=== PATIENT | female | born 1945 | race Caucasian/White ===

== ENCOUNTER 2022-03-11 01:21 | Observation (INO) | payer MEDICARE ==
[2022-03-11] MEDS ORDERED: LORazepam 2 MG/ML INJ IV STA (02:04)
[2022-03-11] MEDS ORDERED: NITROGLYCERIN OINT 1 INCH/GM PACKET TOPICAL STA (02:05)
--- NOTE | 2022-03-11 02:08 | ED ---
Chest Pain HPI - General Chief Complaint: Chest Pain Stated Complaint: Chest Pain/Back Pain Time Seen by Provider: 03/11/22 01:43 Source: patient Mode of arrival: ambulatory - History of Present Illness Initial Comments: 's patient is a 76-year-old woman who presents to be evaluated for chest pain and palpitations. The patient states that the symptoms had started up tonight after she had taken her insulin and was trying to go to bed. When the symptoms did not resolve she presents here for evaluation. The patient states she had earlier in the week seen her physician who had done an EKG and was concerned she may have had an HI previously and set her up with cardiology. Patient was also prescribed nitroglycerin to use should she develop episodes. She took one of those and states that her breathing did feel a little better. MD Complaint: chest pain -: hour(s) Onset: during rest Pain Location: substernal Pain Radiation: none Severity: mild Quality: tightness Consistency: constant Improves With: nothing Worsens With: nothing Anginal Symptoms: dyspnea Treatments Prior to Arrival: nitroglycerin - Related Data Home Medications Medication Instructions Recorded Confirmed Insulin Aspart Protam & Aspart 16 unit SQ AC-SUPPER 03/02/16 03/11/22 [NovoLOG MIX 70-30 Flexpen] Insulin Aspart Protam & Aspart 20 unit SQ AC-BRKFST 03/02/16 03/11/22 [NovoLOG MIX 70-30 Flexpen] Escitalopram [Lexapro] 10 mg PO DAILY 03/11/22 03/11/22 Losartan-Hctz 50-12.5 mg [Hyzaar 1 tab PO DAILY 03/11/22 03/11/22 50-12.5] Nitroglycerin Sl Tabs [Nitrostat] 0.4 mg SUBLINGUAL Q5M PRN 03/11/22 03/11/22 Omeprazole 20 mg PO DAILY 03/11/22 03/11/22 Venlafaxine HCl [Effexor XR] 37.5 mg PO DAILY 03/11/22 03/11/22 Previous Rx's Medication Instructions Recorded Aspirin 81 mg PO DAILY 03/12/22 Allergies Allergy/AdvReac Type Severity Reaction Status Date / Time atropine sulfate Allergy Rapid Verified 03/11/22 12:10 [From Lomotil] Heart Rate codeine Allergy Vomiting Verified 03/11/22 12:10 diphenoxylate HCl Allergy Rapid Verified 03/11/22 12:10 [From Lomotil] Heart Rate simvastatin [From Zocor] Allergy Abdominal Verified 03/11/22 12:10 Pain flagyl Allergy Rapid Uncoded 03/02/16 09:47 Heart Rate narcotics Allergy Vomiting Uncoded 03/02/16 09:43 Oatmeal Allergy Rash/Hives Uncoded 03/11/22 23:47 Review of Systems ROS Statement: Those systems with pertinent positive or pertinent negative responses have been documented in the HPI. ROS Other: All systems not noted in ROS Statement are negative. Constitutional: Denies: fever, chills Respiratory: Denies: cough, dyspnea Cardiovascular: Reports: chest pain, palpitations. Denies: orthopnea, edema, syncope Gastrointestinal: Denies: abdominal pain, nausea, vomiting Genitourinary: Denies: dysuria, hematuria Musculoskeletal: Denies: back pain Skin: Denies: rash Neurological: Denies: headache, weakness, numbness Psychiatric: Reports: anxiety EKG Findings - EKG Results: EKG: interpreted by RE, sinus rhythm (Rate 83 bpm.) - Blocks, [place], Hypertrophy, ST Abn: Chamber hypertrophy or enlargement: left ventricular hypertrophy or enlargement (LVE) - HI, Pacemaker, Normal: Myocardial infarction: septal HI (old age or indeterminate) Past Medical History Past Medical History: Diabetes Mellitus, GERD/Reflux, Hyperlipidemia Additional Past Medical History / Comment(s): varicose vein, diarrhea/constipation, IBS, arthritis, frequent UTI's. recent "NORO virus". History of Any Multi-Drug Resistant Organisms: None Reported Past Surgical History: Hysterectomy, Orthopedic Surgery, Tonsillectomy, Tubal Ligation Additional Past Surgical History / Comment(s): Fx rt elbow surgery, left wrist surgery, Past Anesthesia/Blood Transfusion Reactions: Postoperative Nausea & Vomiting (PONV) Additional Past Anesthesia/Blood Transfusion Reaction / Comment(s): severe PONV Past Psychological History: Anxiety Smoking Status: Never smoker Past Alcohol Use History: None Reported Past Drug Use History: None Reported - Past Family History Father Family Medical History: Cancer Mother Family Medical History: Cancer General Exam General appearance: alert, in no apparent distress Head exam: Present: atraumatic, normocephalic Eye exam: Present: normal appearance. Absent: scleral icterus, conjunctival injection ENT exam: Present: normal oropharynx Neck exam: Present: normal inspection, full ROM Respiratory exam: Present: normal lung sounds bilaterally. Absent: respiratory distress, wheezes, rales, rhonchi, stridor Cardiovascular Exam: Present: regular rate, normal rhythm, normal heart sounds. Absent: systolic murmur, diastolic murmur, rubs, gallop GI/Abdominal exam: Present: soft. Absent: distended, tenderness, guarding, rebound, rigid, mass Extremities exam: Present: normal inspection, normal capillary refill. Absent: pedal edema, calf tenderness Back exam: Present: normal inspection. Absent: CVA tenderness (R), CVA tenderness (L) Neurological exam: Present: alert Skin exam: Present: warm, dry, intact, normal color. Absent: rash Course Vital Signs 03/11/22 03/11/22 03/11/22 01:28 02:32 04:00 Temperature 98 F Pulse Rate 87 68 74 Respiratory 19 16 18 Rate Blood Pressure 197/93 156/80 140/70 O2 Sat by Pulse 98 95 95 Oximetry 03/11/22 05:15 Temperature Pulse Rate 73 Respiratory 18 Rate Blood Pressure 148/71 O2 Sat by Pulse 94 L Oximetry Disposition Clinical Impression: Chest pain Disposition: ADMITTED IP TO THIS HOSP Condition: Good Is patient prescribed a controlled substance at d/c from ED?: No
[2022-03-11 02:21] LABS: Basophils # (A) 0.1 k/uL (0-0.2); Basophils % (A) 2 %; Eosinophils # (A) 0.1 k/uL (0-0.7); Eosinophils % (A) 2 %; HCT 43.2 % (34.0-46.0); HGB 13.8 gm/dL (11.4-16.0); Lymphocytes # (A) 2.4 k/uL (1.0-4.8); Lymphocytes % (A) 40 %; MCH 30.2 pg (25.0-35.0); MCHC 31.8 g/dL (31.0-37.0); MCV 95.1 fL (80.0-100.0); Mean Platelet Volume 7.5; Monocytes # (A) 0.4 k/uL (0-1.0); Monocytes % (A) 7 %; Neutrophils # (A) 2.8 k/uL (1.3-7.7); Neutrophils % (A) 47 %; Platelet Count 247 k/uL (150-450); RBC 4.55 m/uL (3.80-5.40); RDW 12.5 % (11.5-15.5)
[2022-03-11 02:30] LABS: ALT 14 U/L (4-34); AST 21 U/L (14-36); African American GFR (CKD) >90 (>60 ml/min/1.73 sqM); Albumin 4.2 g/dL (3.5-5.0); Alkaline Phosphatase 100 U/L (38-126); Anion Gap 8 mmol/L; Blood Urea Nitrogen 22 mg/dL (7-17); Carbon Dioxide 28 mmol/L (22-30); Chloride 101 mmol/L (98-107); Glucose 157 mg/dL (74-99); Magnesium 1.9 mg/dL (1.6-2.3); Non-African American GFR(CKD) 89 (>60 ml/min/1.73 sqM); Potassium 3.6 mmol/L (3.5-5.1); Sodium 137 mmol/L (137-145); Total Bilirubin 0.5 mg/dL (0.2-1.3); Total Protein 6.9 g/dL (6.3-8.2)
--- NOTE | 2022-03-11 03:03 | XR ---
EXAMINATION TYPE: XR chest 1V portable DATE OF EXAM: 03/11/2022 COMPARISON: NONE HISTORY: Chest pain TECHNIQUE: Single view FINDINGS: Heart is normal. Lungs are clear of infiltrate. Thoracic aorta is atheromatous. There are c hest leads. IMPRESSION: No active cardiopulmonary disease.
[2022-03-11 03:09] LABS: INR 0.9 (<1.2); Prothrombin Time 10.2 sec (9.0-12.0)
[2022-03-11] MEDS ORDERED: NITROGLYCERIN SL TABS 0.4 MG TAB SUBLINGUAL PRN (04:16)
[2022-03-11] MEDS ORDERED: OMEPRAZOLE 10 MG PO PRN (04:18)
[2022-03-11 07:28] LABS: Glucose,Whole Blood 191 mg/dL (75-99)
[2022-03-11] MEDS: PANTOPRAZOLE 40 MG TABLET PO SCH (08:41)
[2022-03-11] MEDS ORDERED: ALPRAZolam 0.5 MG TAB PO PRN (09:00)
[2022-03-11] MEDS ORDERED: AMINOPHYLLINE 500 MG/20 ML VIAL IV PRN (11:38)
[2022-03-11] MEDS ORDERED: CAFFEINE CITRATE 60 MG/3 ML VIAL IV PRN (11:38)
--- NOTE | 2022-03-11 11:38 | P.CRDCN ---
History of Present Illness History of present illness: HISTORY OF PRESENTING ILLNESS Patient is a pleasant 76-year-old female with history of anxiety, hiatal hernia, GERD, diabetes mellitus type 2 on insulin, hypertension on some form of combina tion diuretic and blood pressure medication however unsure what who presents secondary to chest pain. Patient states over the last month she has been having atypical sharp chest pain which normally last for a few seconds and then goes away. This can happen every couple days. She had a longer episode of sharp chest pain which was substernal and then radiated into the right shoulder which lasted for 3-4 hours and she was feeling jittery and anxious and therefore came to emergency department. She was given nitroglycerin by her PCP and therefore taken nitro and this actually did help some of the pain. She admits to mild nauseous however no shortness breath or diaphoresis. She denies any similar episodes in the past. She denies any cardiac history however PCP had ordered the nitro area she has never seen a sidewalk repairer. She believes she had stress testing approximately 15 years ago. No alcohol, no illicit drugs, no tobacco. No family history of heart disease. EKG shows normal sinus rhythm with no significant ST or T-wave abnormalities. Troponins normal 3. She was noted to be very hypertensive on presentation 190s systolic however has come down to 140s. She has not been receiving her home blood pressure medication. REVIEW OF SYSTEMS At the time of my exam: CONSTITUTIONAL: Denies fever or chills. CARDIOVASCULAR: +Chest pain, no shortness of breath, orthopnea, PND or pa lpitations. RESPIRATORY: Denies cough. GASTROINTESTINAL: Denies abdominal pain, diarrhea, constipation, +nausea , no vomiting. MUSCULOSKELETAL: Denies myalgias. NEUROLOGIC: Denies numbness, tingling or weakness. ENDOCRINE: Denies fatigue, weight change, polydipsia or polyurina. GENITOURINARY: Denies burning, hematuria or urgency with micturation. HEMATOLOGIC: Denies history of anemia or bleeding. PHYSICAL EXAMINATION Vital signs reviewed. CONSTITUTIONAL: No apparent distress. HEENT: Head is normocephalic. Pupils are equal, round. Sclerae anicteric. Mucous membranes of the mouth are moist. No JVD. No carotid bruit. CHEST EXAMINATION: Lungs are clear to auscultation. No chest wall tenderness is noted on palpation or with deep breathing. HEART EXAMINATION: Regular rate and rhythm. S1, S2 heard. No murmurs, gallops or rub. ABDOMEN: Soft, nontender. Positive bowel sounds. EXTREMITIES: 2+ peripheral pulses, no lower extremity edema and no calf tenderness. NEUROLOGIC EXAMINATION: Patient is awake, alert and oriented x3. ASSESSMENT 1. Atypical chest pain with associated nauseous however was improved with nitro, troponins normal 3 2. Hypertension currently on combination blood pressure/diuretic 3. Diabetes mellitus type 2 4. Hiatal hernia 5. Anxiety PLAN Chest pain fairly atypical however was improved with nitroglycerin. May be related to uncontrolled high blood pressure however blood pressure has improved on its own and likely exacerbated by anxiety. Patient's daughter to check home blood pressure medications and we will resume. Ideally LAURYN inhibitor or angiotensin ceptor joshua given diabetes mellitus. We will check 2-D echo to evaluate left ventricular function as well as a Lexiscan stress test to rule out any inducible ischemia. Further recommendations to follow. Past Medical History Past Medical History: Chest Pain / Angina, Diabetes Mellitus, GERD/Reflux Additional Past Medical History / Comment(s): varicose vein, diarrhea/constipation, IBS, arthritis, frequent UTI's. History of Any Multi-Drug Resistant Organisms: None Reported Past Surgical History: Hysterectomy, Orthopedic Surgery, Tonsillectomy, Tubal Ligation Additional Past Surgical History / Comment(s): Fx rt elbow surgery, left wrist surgery, right carpal tunnel Past Anesthesia/Blood Transfusion Reactions: Postoperative Nausea & Vomiting (PONV) Additional Past Anesthesia/Blood Transfusion Reaction / Comment(s): severe PONV Past Psychological History: Anxiety Smoking Status: Never smoker Past Alcohol Use History: None Reported Past Drug Use History: None Reported - Past Family History Father Family Medical History: Cancer Mother Family Medical History: Cancer Medications and Allergies Home Medications Medication Instructions Recorded Confirmed Type ALPRAZolam [Xanax] 0.5 mg PO DIRECTED PRN 03/02/16 03/06/16 History Insulin Aspart Protam & Aspart 30 unit SQ AC-BRKFST 03/02/16 03/06/16 History [NovoLOG MIX 70-30 Flexpen] Insulin Aspart Protam & Aspart 30 unit SQ AC-SUPPER 03/02/16 03/06/16 History [NovoLOG MIX 70-30 Flexpen] Omeprazole [PriLOSEC] 10 mg PO AC-SUPPER PRN 03/06/16 03/06/16 History Allergies Allergy/AdvReac Type Severity Reaction Status Date / Time atropine sulfate Allergy Rapid Verified 03/02/16 09:47 [From Lomotil] Heart Rate codeine Allergy Vomiting Verified 03/02/16 09:43 diphenoxylate HCl Allergy Rapid Verified 03/02/16 09:47 [From Lomotil] Heart Rate simvastatin [From Zocor] Allergy Abdominal Verified 03/02/16 09:43 Pain flagyl Allergy Rapid Uncoded 03/02/16 09:47 Heart Rate narcotics Allergy Vomiting Uncoded 03/02/16 09:43 Physical Exam Vitals: Vital Signs Temp Pulse Pulse Resp BP BP Pulse Ox 03/11/22 07:00 98.4 F 76 16 153/67 96 03/11/22 05:15 73 18 148/71 94 L 03/11/22 04:00 74 18 140/70 95 03/11/22 02:32 68 16 156/80 95 03/11/22 01:28 98 F 87 19 197/93 98 Intake and Output 03/10/22 03/11/22 03/11/22 22:59 06:59 14:59 Other: # Voids 3 Weight 81.647 kg Results 03/11/22 02:09 03/11/22 02:09 Cardiac Enzymes 03/11/22 03/11/22 03/11/22 Range/Units 02:09 02:09 05:14 AST 21 (14-36) U/L Troponin I <0.012 <0.012 (0.000-0.034) ng/mL 03/11/22 Range/Units 08:35 AST (14-36) U/L Troponin I <0.012 (0.000-0.034) ng/mL Coagulation 03/11/22 Range/Units 02:09 PT 10.2 (9.0-12.0) sec APTT 24.0 (22.0-30.0) sec CBC 03/11/22 Range/Units 02:09 WBC 6.0 (3.8-10.6) k/uL RBC 4.55 (3.80-5.40) m/uL Hgb 13.8 (11.4-16.0) gm/dL Hct 43.2 (34.0-46.0) % Plt Count 247 (150-450) k/uL Comprehensive Metabolic Panel 03/11/22 Range/Units 02:09 Sodium 137 (137-145) mmol/L Potassium 3.6 (3.5-5.1) mmol/L Chloride 101 (98-107) mmol/L Carbon Dioxide 28 (22-30) mmol/L BUN 22 H (7-17) mg/dL Creatinine 0.57 (0.52-1.04) mg/dL Glucose 157 H (74-99) mg/dL Calcium 9.0 (8.4-10.2) mg/dL AST 21 (14-36) U/L ALT 14 (4-34) U/L Alkaline Phosphatase 100 (38-126) U/L Total Protein 6.9 (6.3-8.2) g/dL Albumin 4.2 (3.5-5.0) g/dL Current Medications Generic Name Dose Route Start Last Admin Trade Name Freq PRN Reason Stop Dose Admin Alprazolam 0.5 mg 03/11/22 09:00 Alprazolam 0.5 Mg Tab PO DAILY PRN Anxiety Aspirin 325 mg 03/12/22 09:00 Aspirin 325 Mg Tab PO DAILY MICHELLE Nitroglycerin 0.4 mg 03/11/22 04:16 Nitroglycerin Sl Tabs 0.4 Mg Tab SUBLINGUAL Q5M PRN Chest Pain Pantoprazole Sodium 40 mg 03/11/22 07:30 03/11/22 08:41 Pantoprazole 40 Mg Tablet PO 40 mg AC-BRKFST MICHELLE Administration Sodium Chloride 10 ml 03/11/22 09:00 03/11/22 08:44 Sodium Chloride 0.9% Flush 10 Ml Syringe IV 10 ml BID MICHELLE Administration Intake and Output 03/10/22 03/11/22 03/11/22 22:59 06:59 14:59 Other: # Voids 3 Weight 81.647 kg 03/11/22 02:09 03/11/22 02:09
[2022-03-11 12:34] LABS: Glucose,Whole Blood 269 mg/dL (75-99)
--- NOTE | 2022-03-11 14:05 | P.HPIM ---
History of Present Illness H&P Date: 03/11/22 Chief Complaint: Chest pain 76-year-old woman with a medical history of depression, hypertension, diabetes presented with chest pain. Patient says her pain started approximately 2 weeks ago, but got worse the last 24-48 hours. Patient states her pain is substernal, pressure-like. She does not particularly notice worsening with food, position, exercise. She reports a lot of life stressors recently. She denies fevers, chills, nausea, vomiting, palpitations, syncope, presyncope, cough, dyspnea, abdominal pain, constipation, diarrhea, dysuria, dyschezia, numbness/weakness of extremities. Upon my evaluation, patient was afebrile, 153/67, heart rate 76, 96% on room a ir. CBC is unremarkable. Chemistries are unremarkable. LFTs are unremarkable. BNP is 103. Initial troponin, repeat troponins all less than 0.012. Coags are unremarkable. Chest x-ray does not show active cardiopulmonary disease. EKG demonstrates normal sinus rhythm without evidence of ischemia. All Systems reviewed and pertinent positives and negatives noted in HPI, all other symptoms are negative Gen: awake, alert HEENT: normocephalic, atraumatic, good hearing acuity, moist mucous membranes Resp: good air exchange, breathing comfortably with no accessory muscle use CVS: good distal perfusion x 4, GI: soft, NTTP, ND : no SPT, no CVAT, patel catheter not present MSK: no pitting edema, no clubbing Neuro: non-focal, moving all extremities Psych: cooperative, euthymic mood Labs and imaging as above Assessment/plan: Chest pain, atypical -Admit to observation, telemetry -Cardiology consult -Troponins trended negative -EKG/nitro when necessary for chest pain -Echo -Aspirin, statin -Stress test Depression Hypertension Diabetes -Home medications reviewed and reconciled -Sliding-scale insulin Patient is full code DVT prophylaxis with heparin 3 times a day Past Medical History Past Medical History: Chest Pain / Angina, Diabetes Mellitus, GERD/Reflux Additional Past Medical History / Comment(s): varicose vein, diarrhea/constipation, IBS, arthritis, frequent UTI's. History of Any Multi-Drug Resistant Organisms: None Reported Past Surgical History: Hysterectomy, Orthopedic Surgery, Tonsillectomy, Tubal Ligation Additional Past Surgical History / Comment(s): Fx rt elbow surgery, left wrist surgery, right carpal tunnel Past Anesthesia/Blood Transfusion Reactions: Postoperative Nausea & Vomiting (PONV) Additional Past Anesthesia/Blood Transfusion Reaction / Comment(s): severe PONV Past Psychological History: Anxiety Smoking Status: Never smoker Past Alcohol Use History: None Reported Past Drug Use History: None Reported - Past Family History Father Family Medical History: Cancer Mother Family Medical History: Cancer Medications and Allergies Home Medications Medication Instructions Recorded Confirmed Type Insulin Aspart Protam & Aspart 16 unit SQ AC-SUPPER 03/02/16 03/11/22 History [NovoLOG MIX 70-30 Flexpen] Insulin Aspart Protam & Aspart 20 unit SQ AC-BRKFST 03/02/16 03/11/22 History [NovoLOG MIX 70-30 Flexpen] Escitalopram [Lexapro] 10 mg PO DAILY 03/11/22 03/11/22 History Losartan-Hctz 50-12.5 mg [Hyzaar 1 tab PO DAILY 03/11/22 03/11/22 History 50-12.5] Nitroglycerin Sl Tabs [Nitrostat] 0.4 mg SUBLINGUAL Q5M PRN 03/11/22 03/11/22 History Omeprazole 20 mg PO DAILY 03/11/22 03/11/22 History Venlafaxine HCl [Effexor] 37.5 mg PO DAILY 03/11/22 03/11/22 History Allergies Allergy/AdvReac Type Severity Reaction Status Date / Time atropine sulfate Allergy Rapid Verified 03/11/22 12:10 [From Lomotil] Heart Rate codeine Allergy Vomiting Verified 03/11/22 12:10 diphenoxylate HCl Allergy Rapid Verified 03/11/22 12:10 [From Lomotil] Heart Rate simvastatin [From Zocor] Allergy Abdominal Verified 03/11/22 12:10 Pain flagyl Allergy Rapid Uncoded 03/02/16 09:47 Heart Rate narcotics Allergy Vomiting Uncoded 03/02/16 09:43 Physical Exam Osteopathic Statement: *. No significant issues noted on an osteopathic structural exam other than those noted in the History and Physical/Consult. Vitals: Vital Signs Temp Pulse Pulse Resp BP BP Pulse Ox 03/11/22 07:00 98.4 F 76 16 153/67 96 03/11/22 05:15 73 18 148/71 94 L 03/11/22 04:00 74 18 140/70 95 03/11/22 02:32 68 16 156/80 95 03/11/22 01:28 98 F 87 19 197/93 98 Intake and Output 03/10/22 03/11/22 03/11/22 22:59 06:59 14:59 Other: # Voids 3 1 Weight 81.647 kg Results CBC & Chem 7: 03/11/22 02:09 03/11/22 02:09 Labs: Abnormal Lab Results - Last 24 Hours (Table) 03/11/22 03/11/22 03/11/22 Range/Units 02:09 07:26 12:32 BUN 22 H (7-17) mg/dL Glucose 157 H (74-99) mg/dL POC Glucose (mg/dL) 191 H 269 H (75-99) mg/dL Thrombosis Risk Factor Assmnt - Choose All That Apply Any of the Below Risk Factors Present?: Yes Each Factor Represents 1 point: Obesity (BMI >25) Other Risk Factors: Yes Each Risk Factor Represents 3 Points: Age 75 years or older Other congenital or acquired thrombophilia - If yes, enter type in comment: No Thrombosis Risk Factor Assessment Total Risk Factor Score: 4 Thrombosis Risk Factor Assessment Level: Moderate Risk
[2022-03-11] MEDS: HEPARIN SODIUM,PORCINE/PF 5,000 UNIT/0.5 ML SYRINGE SQ SCH (16:01)
[2022-03-11 17:26] LABS: Glucose,Whole Blood 206 mg/dL (75-99)
[2022-03-11] MEDS ORDERED: INSULN ASP PRT/INSULIN ASPART 100 UNIT/ML 10 ML VIAL SQ SCH (17:30)
[2022-03-11] MEDS: INSULIN ASPART (NovoLOG) 100 UNIT/ML VIAL SQ SCH (17:59)
[2022-03-11] MEDS ORDERED: NAPROXEN 250 MG TAB PO PRN (19:56)
[2022-03-11 20:30] LABS: Glucose,Whole Blood 167 mg/dL (75-99)
[2022-03-11 20:48] VITALS: RESP 18
[2022-03-12] MEDS: HEPARIN SODIUM,PORCINE/PF 5,000 UNIT/0.5 ML SYRINGE SQ SCH ×2 (00:01→08:54)
[2022-03-12] MEDS ORDERED: REGADENOSON 0.4 MG/5 ML SYRINGE IV PRN (07:00)
[2022-03-12] MEDS ORDERED: INSULN ASP PRT/INSULIN ASPART 100 UNIT/ML 10 ML VIAL SQ SCH (07:30)
[2022-03-12 07:32] LABS: Glucose,Whole Blood 159 mg/dL (75-99)
[2022-03-12 08:00] VITALS: BP 175/68; PULSE 67; TEMP 97.9
[2022-03-12] MEDS: INSULIN ASPART (NovoLOG) 100 UNIT/ML VIAL SQ SCH ×2 (08:53→13:57)
[2022-03-12] MEDS: PANTOPRAZOLE 40 MG TABLET PO SCH (08:55)
[2022-03-12] MEDS ORDERED: ESCITALOPRAM 10 MG TAB PO SCH (09:00)
[2022-03-12] MEDS ORDERED: ASPIRIN 325 MG TAB PO SCH (09:00)
[2022-03-12] MEDS ORDERED: VENLAFAXINE HCL ER 37.5 MG CAP PO SCH (09:00)
[2022-03-12] MEDS ORDERED: NON FORMULARY DRUG (Omeprazole [Omeprazole] 20 MG Capsule.Dr) PO SCH (09:00)
[2022-03-12] MEDS ORDERED: ASPIRIN 81 MG PO SCH (09:00)
[2022-03-12] MEDS ORDERED: LOSARTAN-HCTZ 50-12.5 MG 1 EACH TAB PO SCH (09:00)
[2022-03-12 09:55] LABS: Chol/HDL Ratio 2.84 Ratio; LDL Cholesterol,Calculated 137.1 mg/dL (0.0-131.0); VLDL Calculation 11.28 mg/dL (5.00-40.00)
--- NOTE | 2022-03-12 10:34 | P.PN ---
Subjective HISTORY OF PRESENTING ILLNESS Patient is a pleasant 76-year-old female with history of anxiety, hiatal hernia, GERD, diabetes mellitus type 2 on insulin, hypertension on some form of combination diuretic and blood pressure medication however unsure what who presents secondary to chest pain. Patient states over the last month she has been having atypical sharp chest pain which normally last for a few seconds and then goes away. This can happen every couple days. She had a longer episode of sharp chest pain which was substernal and then radiated into the right shoulder which lasted for 3-4 hours and she was feeling jittery and anxious and therefore came to emergency department. She was given nitroglycerin by her PCP and therefore taken nitro and this actually did help some of the pain. She admits to mild nauseous however no shortness breath or diaphoresis. She denies any similar episodes in the past. She denies any cardiac history however PCP had ordered the nitro area she has never seen a application specialist. She believes she had stress testing approximately 15 years ago. No alcohol, no illicit drugs, no tobacco. No family history of heart disease. EKG revealed normal sinus rhythm with no significant ST or T-wave abnormalities. Troponins normal 3. 03/12/2022 Patient seen and examined at bedside, no distress. Her chest pressure has improved. She denies any shortness of breath. Vital signs are stable, BP 175/68 HR 67, prior to medications. She is maintaining sinus mechanism with heart rate in the 70s on telemetry. She is currently maintained on aspirin 80 mg daily, losartanHydrocort thiazide 5012.5 mg daily PHYSICAL EXAMINATION Vital signs reviewed. CONSTITUTIONAL: No apparent distress. HEENT: Neck Supple. No JVD. No carotid bruit. CHEST EXAMINATION: Lungs are clear to auscultation. No chest wall tenderness is noted on palpation or with deep breathing. HEART EXAMINATION: Regular rate and rhythm. S1, S2 heard. No murmurs, gallops or rub. ABDOMEN: Soft, nontender. Positive bowel sounds. EXTREMITIES: 2+ peripheral pulses, no lower extremity edema and no calf tenderness. NEUROLOGIC EXAMINATION: Patient is awake, alert and oriented x3. ASSESSMENT Atypical chest pain with associated nauseous however was improved with nitro, troponins normal 3, acute coronary syndrome has ruled out. Hypertension currently on combination blood pressure/diuretic Diabetes mellitus type 2 Hiatal hernia Anxiety PLAN Chest pain fairly atypical however was improved with nitroglycerin. May be related to uncontrolled high blood pressure however blood pressure has improved on its own and likely exacerbated by anxiety. Plan for 2-D echo to evaluate left ventricular function as well as a Lexiscan stress test to rule out any inducible ischemia today. If Lexiscan stress test if negative, no further in patient testing at this time from a cardiology perspective. Nurse practitioner note has been reviewed by physician. Signing provider agrees with the documented findings, assessment, and plan of care. Objective - Vital Signs Vital signs: Vital Signs Temp 97.9 F 03/12/22 07:00 Pulse 67 03/12/22 07:00 Resp 18 03/12/22 07:00 BP 175/68 03/12/22 07:00 Pulse Ox 97 03/12/22 07:00 Intake & Output 03/11/22 03/12/22 03/12/22 18:59 06:59 18:59 Intake Total 118 0 Balance 118 0 Intake: Oral 118 0 Other: Voiding Method Toilet # Voids 1 2 - Labs CBC & Chem 7: 03/11/22 02:09 03/11/22 02:09 Labs: Abnormal Lab Results - Last 24 Hours (Table) 03/11/22 03/11/22 03/11/22 Range/Units 12:32 17:24 20:29 POC Glucose (mg/dL) 269 H 206 H 167 H (75-99) mg/dL Cholesterol (0.00-200.00) mg/dL LDL Cholesterol, Calc (0.0-131.0) mg/dL HDL Cholesterol (40.00-60.00) mg/dL 03/12/22 03/12/22 Range/Units 06:22 07:31 POC Glucose (mg/dL) 159 H (75-99) mg/dL Cholesterol 229.00 H (0.00-200.00) mg/dL LDL Cholesterol, Calc 137.1 H (0.0-131.0) mg/dL HDL Cholesterol 80.60 H (40.00-60.00) mg/dL
--- NOTE | 2022-03-12 10:35 | CA ---
Transthoracic Echo Report Name: Lolis Coffey Age: 76 Gender: F : 1945 Exam Date: 03/12/2022 08:00 Exam Location: [place] Echo Ht (in): 66 Wt (lb): 180 Ordering Physician: Rey Oneal DO ([email or web address]) Attending/Referring Phys: Cissp Zarina Strickland RDCS Procedure CPT: Indications: re:LV function Cardiac Hx: No cardiac hx Technical Quality: Fair Contrast 1: Total Dose (mL): Contrast 2: Total Dose (mL): MEASUREMENTS (Male / Female) Normal Values 2D ECHO LV Diastolic Diameter PLAX 3.2 cm 4.2 - 5.9 / 3.9 - 5.3 cm LV Systolic Diameter PLAX 2.2 cm IVS Diastolic Thickness 0.9 cm 0.6 - 1.0 / 0.6 - 0.9 cm LVPW Diastolic Thickness 1.0 cm 0.6 - 1.0 / 0.6 - 0.9 cm LV Relative Wall Thickness 0.6 M-MODE Aortic Root Diameter MM 3.4 cm LA Systolic Diameter MM 2.3 cm LA Ao Ratio MM 0.7 AV Cusp Separation MM 1.6 cm DOPPLER AV Peak Velocity 131.8 cm/s AV Peak Gradient 7.0 mmHg AI Peak Velocity 180.5 cm/s AI Peak Gradient 13.0 mmHg AI Pressure Half Time 579.8 ms MV Area PHT 2.3 cm??? MR Peak Velocity 205.6 cm/s MR Peak Gradient 16.9 mmHg Mitral E Point Velocity 88.6 cm/s Mitral A Point Velocity 91.3 cm/s Mitral E to A Ratio 1.0 MV Deceleration Time 323.6 ms MV E' Velocity 5.6 cm/s Mitral E to MV E' Ratio 15.9 TR Peak Velocity 139.6 cm/s TR Peak Gradient 7.8 mmHg Right Ventricular Systolic Press 12.0 mmHg FINDINGS Left Ventricle Normal Left ventricular size, wall thickness, systolic function with no obvious regional wall motion abnormalities. Normal Left ventricular diastolic filling pattern. Left ventricular ejection fraction is estimated at 55-60left ventricular cavity size normal. %. Right Ventricle The right ventricle is normal in size and function. Right Atrium The right atrium is normal in size. Left Atrium The left atrium is normal in size. Mitral Valve Structurally normal mitral valve without significant stenosis or prolapse. There is trace mitral regurgitation. Aortic Valve Structurally normal aortic valve without significant sclerosis or stenosis. There is trace aortic regurgitation. Tricuspid Valve Structurally normal tricuspid valve without significant stenosis. Pulmonary artery systolic pressure is normal. Trace tricuspid regurgitation. Pulmonic Valve Structurally normal pulmonic valve without significant stenosis. There is no pulmonic regurgitation. Pericardium Normal pericardium without effusion. Aorta Normal aortic root dimension. CONCLUSIONS Normal left ventricular dimension and systolic Previewed by: Dr. Collin Ortez MD (Electronically Signed) Final Date: 12 Mar 2022 09:51
[2022-03-12 12:08] LABS: Glucose,Whole Blood 178 mg/dL (75-99)
--- NOTE | 2022-03-12 12:27 | NM ---
EXAMINATION TYPE: NM stress lexiscan cardiolite DATE OF EXAM: 03/12/2022 COMPARISON: NONE HISTORY: History of hypertension, hypercholesterolemia, and diabetes presents with chest pain and pal pitations. TECHNIQUE: After the intravenous administration of 9.9 mCi Tc 99m Sestamibi - Cardiolite resting SPE CT images acquired 85 minutes post injection. The patient received 0.4mg Lexiscan, 25.5 mCi Tc 99m Sestamibi - Stress images obtained [address] injection FINDINGS: Review of stress and rest SPECT images demonstrates no distinct perfusion abnormality. Gated analysi s shows normal wall motion with an estimated left ventricular ejection fraction of 63 %. IMPRESSION: No scintigraphic evidence for reversible ischemia.
--- NOTE | 2022-03-12 15:28 | P.DS ---
Providers Date of admission: 03/11/22 04:16 Expected date of discharge: 03/12/22 Attending physician: Isaias Wiggins MD Consults: 03/11/22 04:16 Consult Physician Routine Consulting Provider: Collin Ortez Consult Reason/Comments: chest pain Do you want consulting provider notified?: Yes Primary care physician: Blanche Delacruz [facility] Course: 76-year-old woman with a medical history of depression, hypertension, diabetes presented with chest pain. Upon my evaluation, patient was afebrile, 153/67, heart rate 76, 96% on room air. CBC is unremarkable. Chemistries are unre markable. LFTs are unremarkable. BNP is 103. Initial troponin, repeat troponins all less than 0.012. Coags are unremarkable. Chest x-ray does not show active cardiopulmonary disease. EKG demonstrates normal sinus rhythm without evidence of ischemia. Chest pain, atypical -Admitted to observation, telemetry. Cardiology consulted. Troponins trend negative. Echo showed good EF, no WMA. ASA, Statin. Lexiscan was negative for reversible ischemia. Depression Hypertension Diabetes -Home meds reviewed and reconciled. Gen: awake, alert HEENT: normocephalic, atraumatic, good hearing acuity, moist mucous membranes Resp: good air exchange, breathing comfortably with no accessory muscle use CVS: good distal perfusion x 4, GI: soft, NTTP, ND : no SPT, no CVAT, patel catheter not present MSK: no pitting edema, no clubbing Neuro: non-focal, moving all extremities Psych: cooperative, euthymic mood Patient Condition at Discharge: Good Plan - Discharge Summary Discharge Rx Participant: No New Discharge Prescriptions: New Aspirin 81 mg PO DAILY Continue Insulin Aspart Protam & Aspart [NovoLOG MIX 70-30 Flexpen] 16 unit SQ AC- SUPPER Insulin Aspart Protam & Aspart [NovoLOG MIX 70-30 Flexpen] 20 unit SQ AC- BRKFST Nitroglycerin Sl Tabs [Nitrostat] 0.4 mg SUBLINGUAL Q5M PRN PRN Reason: Chest Pain Losartan-Hctz 50-12.5 mg [Hyzaar 50-12.5] 1 tab PO DAILY Escitalopram [Lexapro] 10 mg PO DAILY Omeprazole 20 mg PO DAILY Venlafaxine HCl [Effexor XR] 37.5 mg PO DAILY Discharge Medication List Insulin Aspart Protam & Aspart [NovoLOG MIX 70-30 Flexpen] 16 unit SQ AC-SUPPER 03/02/16 [History] Insulin Aspart Protam & Aspart [NovoLOG MIX 70-30 Flexpen] 20 unit SQ AC-BRKFST 03/02/16 [History] Escitalopram [Lexapro] 10 mg PO DAILY 03/11/22 [History] Losartan-Hctz 50-12.5 mg [Hyzaar 50-12.5] 1 tab PO DAILY 03/11/22 [History] Nitroglycerin Sl Tabs [Nitrostat] 0.4 mg SUBLINGUAL Q5M PRN 03/11/22 [History] Omeprazole 20 mg PO DAILY 03/11/22 [History] Venlafaxine HCl [Effexor XR] 37.5 mg PO DAILY 03/11/22 [History] Aspirin 81 mg PO DAILY 03/12/22 [Rx] Follow up Appointment(s)/Referral(s): Yasmany Mancia MD [Primary Care Provider] - 1-2 days Rey Oneal DO [STAFF PHYSICIAN] - 2 Weeks Patient Instructions/Handouts: Chest Pain (DC) Discharge Disposition: HOME SELF-CARE
--- NOTE | 2022-03-13 09:01 | CA ---
Lexiscan Nuclear Stress Test Report Name: Lolis Coffey Exam Date: 03/12/2022 10:31 Exam Location: [place] Stress Ht (in): 66 Wt (lb): 180 BSA: 1.91 Ordering Phys: Rey Oneal DO Referring Phys: Feliciano,, Technologist: ROOPA,, Age: 76 Gender: F : 1945 Procedure CPT: Indications: Reflex order-Stress test ICD-10 Codes: Patient History: CHEST PAIN Medications: SEE CHART Meds past 24 hrs: Pretest Chest Pain: STRESS TEST Lexiscan Protocol Exercise Duration (min:sec): 02:[address] Depressions (mm): Angina Score: Power Score: Resting HR (bpm): 71 Peak HR (bpm): 101 Resting BP (mmHg): 166 / 75 Peak BP (mmHg): 193 / 68 MPHR: 142 Target HR: 121 % MPHR: 71 METS: 1.0 Total Dose: Peak Dose: Atropine: Double Product: 43110 BP Response: Stress Termination: Reached target heart rate Stress Symptoms: No chest pain or symptoms Stress Summary: ECG ANALYSIS Resting ECG: Stress ECG: CONCLUSIONS Nondiagnostic echocardiogram stress testing and response to Lexiscan Please follow-up on the Cardiolite portion on a separate report Dr. Collin Ortez MD (Electronically Signed) Final Date: 13 Mar 2022 09:00
== END 2022-03-12 15:21 | disposition home or self-care (01) ==
LOC: EC 01:21 → 6NMEDSUR 04:16
PROVIDERS: ADMIT Internal Medicine; ATTEND Internal Medicine
DX: R07.2 Precordial pain (principal); F32.A Depression, unspecified; I10 Essential (primary) hypertension; E11.9 Type 2 diabetes mellitus without complications; E78.5 Hyperlipidemia, unspecified; K44.9 Diaphragmatic hernia without obstruction or gangrene; F41.9 Anxiety disorder, unspecified; R11.0 Nausea; G56.01 Carpal tunnel syndrome, right upper limb; R06.00 Dyspnea, unspecified; I83.90 Asymptomatic varicose veins of unspecified lower extremity; K21.9 Gastro-esophageal reflux disease without esophagitis; K58.9 Irritable bowel syndrome, unspecified; M19.90 Unspecified osteoarthritis, unspecified site; R11.2 Nausea with vomiting, unspecified; E66.9 Obesity, unspecified; Z68.29 Body mass index [BMI] 29.0-29.9, adult; M54.9 Dorsalgia, unspecified; M54.50 Low back pain, unspecified; Z79.4 Long term (current) use of insulin; Z79.82 Long term (current) use of aspirin; Z79.899 Other long term (current) drug therapy; Z88.5 Allergy status to narcotic agent; Z88.2 Allergy status to sulfonamides; Z88.8 Allergy status to other drugs, medicaments and biological substances; Z88.1 Allergy status to other antibiotic agents; Z90.710 Acquired absence of both cervix and uterus; Z87.440 Personal history of urinary (tract) infections; Z80.9 Family history of malignant neoplasm, unspecified
CPT/HCPCS: 99285; 96372 ×2; 96374; 36415; 93017; 93306; 83880; 80061; 80053; 83735; 84484; 85025; 85610; 85730; 71045; 78452; G0378 ×2; A9500; J2060; J1644 ×2; 93005

== ENCOUNTER 2023-04-18 13:53 | Emergency (ER) | payer MEDICARE ==
[2023-04-18] MEDS ORDERED: ACETAMINOPHEN TAB 325 MG TAB PO STA (14:40)
--- NOTE | 2023-04-18 14:46 | ED ---
General Adult HPI - General Chief complaint: Fall Stated complaint: Right Shoulder Fall Time Seen by Provider: 04/18/23 14:34 Source: patient, family, RN notes reviewed Mode of arrival: ambulatory Limitations: no limitations - History of Present Illness Initial comments: Patient is a 78-year-old female presenting to the ER with a chief complaint of a fall. Patient was pulling weeds in her yard and when she stood up to put the weeds in a bag she tripped over a tomato cage and fell. Patient reached her arms out to catch her fall and her right arm took the majority of her weight. Patient states she felt immediate pain. Patient reports extreme pain with any movement of her shoulder. Denies parasthesias, loss of consciousness, any other injury, blood thinner use. No other complaints at this time. - Related Data Home Medications Medication Instructions Recorded Confirmed Insulin Aspart Prot/Insuln Asp 16 unit SQ AC-SUPPER 03/02/16 03/11/22 [NovoLOG MIX 70-30 Flexpen] Insulin Aspart Prot/Insuln Asp 20 unit SQ AC-BRKFST 03/02/16 03/11/22 [NovoLOG MIX 70-30 Flexpen] Escitalopram [Lexapro] 10 mg PO DAILY 03/11/22 03/11/22 Losartan-Hctz 50-12.5 mg [Hyzaar 1 tab PO DAILY 03/11/22 03/11/22 50-12.5] Nitroglycerin Sl Tabs [Nitrostat] 0.4 mg SUBLINGUAL Q5M PRN 03/11/22 03/11/22 Omeprazole 20 mg PO DAILY 03/11/22 03/11/22 Venlafaxine HCl [Effexor XR] 37.5 mg PO DAILY 03/11/22 03/11/22 Previous Rx's Medication Instructions Recorded Aspirin 81 mg PO DAILY 03/12/22 Allergies Allergy/AdvReac Type Severity Reaction Status Date / Time atropine sulfate Allergy Rapid Verified 04/18/23 14:24 [From Lomotil] Heart Rate codeine Allergy Vomiting Verified 04/18/23 14:24 diphenoxylate HCl Allergy Rapid Verified 04/18/23 14:24 [From Lomotil] Heart Rate simvastatin [From Zocor] Allergy Abdominal Verified 04/18/23 14:24 Pain flagyl Allergy Rapid Uncoded 04/18/23 14:24 Heart Rate narcotics Allergy Vomiting Uncoded 04/18/23 14:24 Oatmeal Allergy Rash/Hives Uncoded 04/18/23 14:24 Review of Systems ROS Statement: Those systems with pertinent positive or pertinent negative responses have been documented in the HPI. ROS Other: All systems not noted in ROS Statement are negative. Past Medical History Past Medical History: Diabetes Mellitus, GERD/Reflux, Hyperlipidemia Additional Past Medical History / Comment(s): varicose vein, diarrhea/constipation, IBS, arthritis, frequent UTI's. recent "NORO virus". History of Any Multi-Drug Resistant Organisms: None Reported Past Surgical History: Hysterectomy, Orthopedic Surgery, Tonsillectomy, Tubal Ligation Additional Past Surgical History / Comment(s): Fx rt elbow surgery, left wrist surgery, Past Anesthesia/Blood Transfusion Reactions: Postoperative Nausea & Vomiting (PONV) Additional Past Anesthesia/Blood Transfusion Reaction / Comment(s): severe PONV Past Psychological History: Anxiety Smoking Status: Never smoker Past Alcohol Use History: None Reported Past Drug Use History: None Reported - Past Family History Father Family Medical History: Cancer Mother Family Medical History: Cancer General Exam Limitations: no limitations General appearance: alert, in no apparent distress Head exam: Present: atraumatic, normocephalic, normal inspection Eye exam: Present: normal appearance, PERRL Pupils: Present: normal accommodation Neck exam: Present: normal inspection, full ROM. Absent: tenderness, meningismus, lymphadenopathy Respiratory exam: Present: normal lung sounds bilaterally. Absent: respiratory distress, wheezes, rales, rhonchi, stridor Cardiovascular Exam: Present: regular rate, normal rhythm, normal heart sounds. Absent: systolic murmur, diastolic murmur, rubs, gallop, clicks Extremities exam: Present: joint swelling (Right shoulder tenderness to palpation and edema noted. +2 right radial pulse. Guarding noted. painful elbow flexion and extension. ) Skin exam: Present: warm, dry, intact, normal color, abrasion (nose and right knee noted. ). Absent: rash Course Vital Signs 04/18/23 14:21 Temperature 98.8 F Pulse Rate 81 Respiratory 20 Rate Blood Pressure 163/81 O2 Sat by Pulse 99 Oximetry Medical Decision Making - Medical Decision Making Was pt. sent in by a medical professional or institution (, PA, COMPLIANCE FIELD TECHNICIAN, urgent care, hospital, or half-way...) When possible be specific @ -No Did you speak to anyone other than the patient for history (EMS, parent, family, police, friend...)? What history was obtained from this source @ -No Did you review nursing and triage notes (agree or disagree)? Why? @ -I reviewed and agree with nursing and triage notes Were old charts reviewed (outside hosp., previous admission, EMS record, old EKG, old radiological studies, urgent care reports/EKG's, half-way records)? Report findings @ -No old charts were reviewed Differential Diagnosis (chest pain, altered mental status, abdominal pain women, abdominal pain men, vaginal bleeding, weakness, fever, dyspnea, syncope, headache, dizziness, GI bleed, back pain, seizure, CVA, palpatations, mental health, musculoskeletal)? @ -Fall, shoulder dislocation, humerus fracture, arm contusion EKG interpreted by me (3pts min.). @ -None X-rays interpreted by me (1pt min.). @ -X-ray right shoulder, right humerus shows evidence of proximal humerus fracture mild displacement CT interpreted by me (1pt min.). @ -None done U/S interpreted by me (1pt. min.). @ -None done What testing was considered but not performed or refused? (CT, X-rays, U/S, labs)? Why? @ -None What meds were considered but not given or refused? Why? @ -None Did you discuss the management of the patient with other professionals (professionals i.e. , PA, COMPLIANCE FIELD TECHNICIAN, lab, RT, psych nurse, social work therapist, carcass washer, teacher, chief operating officer, counter caser)? Give summary @ -No Was smoking cessation discussed for >3mins.? @ -No Was critical care preformed (if so, how long)? @ -No Were there social determinants of health that impacted care today? How? (Homelessness, low income, unemployed, alcoholism, drug addiction, transportation, low edu. Level, literacy, decrease access to med. care, prison, rehab)? @ -No Was there de-escalation of care discussed even if they declined (Discuss DNR or withdrawal of care, Hospice)? DNR status @ -No What co-morbidities impacted this encounter? (DM, HTN, Smoking, COPD, CAD, Cancer, CVA, ARF, Chemo, Hep., AIDS, mental health diagnosis, sleep apnea, morbid obesity)? @ -None Was patient admitted / discharged? Hospital course, mention meds given and route, prescriptions, significant lab abnormalities, going to OR and other pertinent info. @ -Discharge patient was placed in a sling patient has seen Dr. Mathur in the past. Follow-up with orthopedics patient will take Motrin as she states she has an ALLERGY to narcotics. Undiagnosed new problem with uncertain prognosis? @ -No Drug Therapy requiring intensive monitoring for toxicity (Heparin, Nitro, Insulin, Cardizem)? @ -No Were any procedures done? @ -No Diagnosis/symptom? @ -Fall, right proximal humerus fracture Acute, or Chronic, or Acute on Chronic? @ -Acute Uncomplicated (without systemic symptoms) or Complicated (systemic symptoms)? @ -Uncomplicated Side effects of treatment? @ -No Exacerbation, Progression, or Severe Exacerbation? @ -No Poses a threat to life or bodily function? How? (Chest pain, [place], [place], pneumonia, PE, COPD, DKA, ARF, appy, cholecystitis, CVA, Diverticulitis, Homicidal, Suicidal, threat to staff... and all critical care pts) @ -No Disposition Clinical Impression: Fall, Closed fracture of right proximal humerus Disposition: HOME SELF-CARE Condition: Stable Instructions (If sedation given, give patient instructions): Proximal Humerus F racture (ED) Additional Instructions: Please return to the Emergency Department if symptoms worsen or any other concerns. Is patient prescribed a controlled substance at d/c from ED?: No Referrals: Luis Mcgill DO [Primary Care Provider] - 1-2 days Ky Mathur MD [STAFF PHYSICIAN] - 1-2 days Time of Disposition: 15:53
--- NOTE | 2023-04-18 15:43 | XR ---
EXAMINATION TYPE: XR shoulder complete 3 views RT, XR humerus 2 views RT DATE OF EXAM: 04/18/2023 Comparison: None Clinical History: 78-year-old female pain after fall Findings: Right shoulder: Moderate capsular hypertrophy at the AC joint with a small loose body. There is at least a 2 part fra cture of the proximal right humerus with a surgical neck fracture component impacted by 2.3 cm. There is a 2.7 cm fracture fragment of the greater tuberosity also displaced by at least 1 cm. There is an terior apex angulation and anterior displacement as well. Inferior pseudosubluxation. Right humerus: No acute fracture of the more mid to distal humerus. Impression: 1. Right shoulder: 3 part impacted and anteriorly displaced fracture of the proximal right humerus wi th a prominent surgical neck component. Additional greater tuberosity component. 2. Right humerus: No additional fracture seen of the mid to distal humerus.
[2023-04-18] MEDS ORDERED: KETOROLAC 15 MG/ML 1 ML VIAL IM STA (15:54)
[2023-04-18 15:56] VITALS: RESP 18
[2023-04-18 16:34] VITALS: BP 188/77; PULSE 71; TEMP 98
== END 2023-04-18 16:35 | disposition home or self-care (01) ==
LOC: EC 13:53
DX: S42.201A Unspecified fracture of upper end of right humerus, initial encounter for closed fracture (principal); E11.9 Type 2 diabetes mellitus without complications; K21.9 Gastro-esophageal reflux disease without esophagitis; E78.5 Hyperlipidemia, unspecified; F41.9 Anxiety disorder, unspecified; Z88.8 Allergy status to other drugs, medicaments and biological substances; Z88.5 Allergy status to narcotic agent; Z91.018 Allergy to other foods; Z79.4 Long term (current) use of insulin; Z79.899 Other long term (current) drug therapy; W01.0XXA Fall on same level from slipping, tripping and stumbling without subsequent striking against object, initial encounter
CPT/HCPCS: 73030; 73060; 99283; 96372; J1885

== ENCOUNTER 2023-05-19 12:10 | Emergency (ER) | payer MEDICARE ==
[2023-05-19 12:15] VITALS: BP 188/91; PULSE 98; RESP 20; TEMP 98.3
[2023-05-19] MEDS ORDERED: KETOROLAC 15 MG/ML 1 ML VIAL IVP STA (12:29)
[2023-05-19] MEDS ORDERED: ONDANSETRON 4 MG/2 ML VIAL IVP STA (12:29)
[2023-05-19] MEDS ORDERED: PANTOPRAZOLE 40 MG/10 ML VIAL IVP STA (12:29)
[2023-05-19] MEDS ORDERED: SODIUM CHLORIDE 0.9% 1,000 ML IV STA (12:29)
[2023-05-19] MEDS ORDERED: LORazepam 0.5 MG TAB PO STA (12:30)
--- NOTE | 2023-05-19 12:42 | ED ---
General Adult HPI - General Chief complaint: Anxiety Stated complaint: anxiety Time Seen by Provider: 05/19/23 12:16 Source: patient, family, RN notes reviewed, old records reviewed Mode of arrival: ambulatory Limitations: no limitations - History of Present Illness Initial comments: Patient is a 78-year-old female with past medical history remarkable for panic attacks and anxiety, diabetes, hyperlipidemia, recently fractured her right shoulder who presents emergency Department complaining of Covid symptoms for the last week or so, as well as not sleeping well, increased anxiety, increased panic attacks, as well as suicidal ideations. Patient does have a history of panic attacks and anxiety and states it usually occurs when she does get more si ck. Has been having Covid symptoms since last Saturday. This currently Saturday. Symptoms include rhinorrhea, cough, body aches. No fevers. Mild nausea but no diarrhea. Decreased appetite. Believe she is dehydrated. Denies any episodes of emesis. Denies chest pain or shortness of breath. Patient's family members are also sick at home. Denies any urinary complaints. States she took her anx iety medication at home with no relief. Does not see a therapist or psychiatrist. States she is having thoughts of wanting to hurt herself but is not acting on them. States this has happened on and off over the last few years. Has been more severe over the last week. Denies any homicidal ideati ons, attempts, plans. Denies any visual or auditory hallucinations. Presents for further evaluation at this time. - Related Data Home Medications Medication Instructions Recorded Confirmed Insulin Aspart Prot/Insuln Asp 16 unit SQ AC-SUPPER 03/02/16 03/11/22 [NovoLOG MIX 70-30 Flexpen] Insulin Aspart Prot/Insuln Asp 20 unit SQ AC-BRKFST 03/02/16 03/11/22 [NovoLOG MIX 70-30 Flexpen] Escitalopram [Lexapro] 10 mg PO DAILY 03/11/22 03/11/22 Losartan-Hctz 50-12.5 mg [Hyzaar 1 tab PO DAILY 03/11/22 03/11/22 50-12.5] Nitroglycerin Sl Tabs [Nitrostat] 0.4 mg SUBLINGUAL Q5M PRN 03/11/22 03/11/22 Omeprazole 20 mg PO DAILY 03/11/22 03/11/22 Venlafaxine HCl [Effexor XR] 37.5 mg PO DAILY 03/11/22 03/11/22 Previous Rx's Medication Instructions Recorded Aspirin 81 mg PO DAILY 03/12/22 LORazepam [Ativan] 0.5 mg PO DAILY PRN 3 Days #3 tab 05/19/23 Allergies Allergy/AdvReac Type Severity Reaction Status Date / Time atropine sulfate Allergy Rapid Verified 05/19/23 12:15 [From Lomotil] Heart Rate codeine Allergy Vomiting Verified 05/19/23 12:15 diphenoxylate HCl Allergy Rapid Verified 05/19/23 12:15 [From Lomotil] Heart Rate simvastatin [From Zocor] Allergy Abdominal Verified 04/18/23 14:24 Pain flagyl Allergy Rapid Uncoded 05/19/23 12:15 Heart Rate narcotics Allergy Vomiting Uncoded 05/19/23 12:15 Oatmeal Allergy Rash/Hives Uncoded 05/19/23 12:15 Review of Systems ROS Statement: Those systems with pertinent positive or pertinent negative responses have been documented in the HPI. Review of Systems: CONST: Denies fever EYES: Denies blurry vision ENT: Endorses Nasal congestion C/V: Denies Chest pain RESP: Denies shortness of breath GI: Denies abdominal pain : Denies dysuria SKIN: Denies rash. MSK: Endorses generalized joint pain NEURO: Denies headache PSYCH: Denies homicidal ideations/plans/attempts. Denies visual or auditory hallucinations. She endorses suicidal ideations. Denies plans or attempts. ROS Other: All systems not noted in ROS Statement are negative. Past Medical History Past Medical History: Diabetes Mellitus, GERD/Reflux, Hyperlipidemia Additional Past Medical History / Comment(s): varicose vein, diarrhea/constipation, IBS, arthritis, frequent UTI's. recent "NORO virus". History of Any Multi-Drug Resistant Organisms: None Reported Past Surgical History: Hysterectomy, Orthopedic Surgery, Tonsillectomy, Tubal Ligation Additional Past Surgical History / Comment(s): Fx rt elbow surgery, left wrist surgery, Past Anesthesia/Blood Transfusion Reactions: Postoperative Nausea & Vomiting (PONV) Additional Past Anesthesia/Blood Transfusion Reaction / Comment(s): severe PONV Past Psychological History: Anxiety Smoking Status: Never smoker Past Alcohol Use History: None Reported Past Drug Use History: None Reported - Past Family History Father Family Medical History: Cancer Mother Family Medical History: Cancer General Exam - General Exam Comments Initial Comments: General: Appears anxious. HEAD: Normal with no signs of head trauma. EYES: PERRLA, EOMI, conjunctiva normal, no discharge. ENT: Hearing grossly intact, normal oropharynx. Mildly dry mucous membranes. RESPIRATORY: Clear breath sounds bilaterally. No wheezes, rales, or rhonchi. No hypoxia. No respiratory distress. C/V: Regular rate and rhythm. S1 and S2 auscultated, no edema, peripheral pulses 2+ and intact throughout ABD: Abd is soft, nontender, nondistended EXT: Normal range of motion, no obvious deformity SKIN: No rashes or lesions observed on exposed skin. NEURO: Alert and oriented 4. No focal sensory strength deficits. Limitations: no limitations Course Vital Signs 05/19/23 12:12 Temperature 98.3 F Pulse Rate 98 Respiratory 20 Rate Blood Pressure 188/91 O2 Sat by Pulse 97 Oximetry Medical Decision Making - Medical Decision Making Was pt. sent in by a medical professional or institution (Dr. PA, SACK REPAIRER, urgent care, hospital, or assisted...) When possible be specific @ -No Did you speak to anyone other than the patient for history (EMS, parent, family, police, friend...)? What history was obtained from this source @ -Patient's daughter separately spoke with me and informs me that the patient every time she is ill especially since a family member has recently from cancer states she is dying and begins having severe anxiety with panic attacks. Has been more prominent lately. Wants patient to be evaluated by psychiatry. Did you review nursing and triage notes (agree or disagree)? Why? @ -I reviewed and agree with nursing and triage notes Were old charts reviewed (outside hosp., previous admission, EMS record, old EKG, old radiological studies, urgent care reports/EKG's, assisted records)? Report findings @ -Old chart reviewed from 04/18/2023 when she presented with her shoulder fracture. Differential Diagnosis (chest pain, altered mental status, abdominal pain women, abdominal pain men, vaginal bleeding, weakness, fever, dyspnea, syncope, headache, dizziness, GI bleed, back pain, seizure, CVA, palpatations, mental health, musculoskeletal)? @ -Differential Mental Health Depression, anxiety, bipolar, psychosis, schizophrenia, borderline personality, situational depression, adjustment disorder, behavioral disorder, brain tumor, malingering, substance abuse, encephalopathy, medication reaction, dementia, hypothyroidism, degenerative neurologic disorder, lupus.... This is not meant to be all-inclusive list Also included are viral syndrome, COVID-19 infection, dehydration, pneumonia. This list is not all-inclusive EKG interpreted by me (3pts min.). @ -As above X-rays interpreted by me (1pt min.). @ -Patient's x-rays of the chest as well as KUB revealed no obvious acute process. He can see the proximal right humerus fracture on chest x-ray which is known to the patient. CT interpreted by me (1pt min.). @ -None done U/S interpreted by me (1pt. min.). @ -None done What testing was considered but not performed or refused? (CT, X-rays, U/S, labs)? Why? @ -None What meds were considered but not given or refused? Why? @ -None Did you discuss the management of the patient with other professionals (professionals i.e. , PA, SACK REPAIRER, lab, RT, psych nurse, social worker psychiatric, director paid media, teacher, tactical response group officer, case packer and sealer)? Give summary @ -EPS notified of consult. EPS Maribel notified me of the patient's psychiatric clearance and stable for discharge home with outpatient follow-up. Was smoking cessation discussed for >3mins.? @ -No Was critical care preformed (if so, how long)? @ -No Were there social determinants of health that impacted care today? How? (Homelessness, low income, unemployed, alcoholism, drug addiction, transportation, low edu. Level, literacy, decrease access to med. care, shelter, rehab)? @ -No Was there de-escalation of care discussed even if they declined (Discuss DNR or withdrawal of care, Hospice)? DNR status @ -No What co-morbidities impacted this encounter? (DM, HTN, Smoking, COPD, CAD, Cancer, CVA, ARF, Chemo, Hep., AIDS, mental health diagnosis, sleep apnea, morbid obesity)? @ -History of anxiety and panic attacks Was patient admitted / discharged? Hospital course, mention meds given and route, prescriptions, significant lab abnormalities, going to OR and other pertinent info. @ -Based on the patient's presentation and physical exam, presents complaining of symptoms consistent with anxiety and panic attacks as well as suicidal ideat ions. Patient is also on day 5-6 of COVID-19 infection. Took a home test which was positive. Multiple family members also tested positive at home. Seems to be having mild symptoms. Vital signs within acceptable limits. We will obtain general laboratory studies, screening EKG, chest x-ray as well. We'll repeat COVID-19 swab. Patient was placed in green scrubs. A sitter was ordered. Suicide precautions were ordered. Patient will require EPS evaluation following workup. She was in agreement this plan. She'll be symptomatically treated with a 1 L fluid bolus, IV Toradol, Zofran, Protonix as well as a small dose of oral Ativan for anxiety. She was in agreement with this plan. Patient's imaging is unremarkable. Patient's labs are also unremarkable. Patient does have 3+ glucose was mildly hypoxemic at 212 but she is not in diabetic ketoacidosis as there is no metabolic acidosis with an anion gap. Patient is Covid positive. Patient is marijuana positive. Alcohol level is un detectable. I reviewed the results with the patient. At this time, patient is medically cleared for evaluation by psychiatry. Disposition is pending psychiatric evaluation. EPS was notified. EPS Maribel evaluated the patient and determined that she is stable for discharge home. Will be given a safety plan. Patient is requesting 3 doses of Ativan for home which will be provided. Strict return precautions discussed. Instructed to follow up outpatient with psychiatric services. Patient will be discharged home in good condition. She was in agreement this plan. Patient is past day 5 of symptoms for COVID-19 infection. Afebrile. No indication for isolation at this time. She expressed understanding. She will attempt to remain isolated while still exhibiting symptoms. She is afebrile 5 days after symptom onset strict isolation precautions. Recommended mask use. I will provide the patient with a prescription for Ativan. I instructed the patient to follow up with their PCP in the next 1-3 days . I explained that the patient should return to the emergency department if they experience any worsening symptoms. Strict return precautions were discussed with the patient. The patient expressed understanding of these instructions. I answered all questi ons that the patient had. The patient was discharged home in good condition with their prescriptions and follow up information. Undiagnosed new problem with uncertain prognosis? @ -No Drug Therapy requiring intensive monitoring for toxicity (Heparin, Nitro, Insulin, Cardizem)? @ -No Were any procedures done? @ -No Diagnosis/symptom? @ -Encounter for psychiatric evaluation, suicidal ideations, anxiety Acute, or Chronic, or Acute on Chronic? @ -Acute on chronic Uncomplicated (without systemic symptoms) or Complicated (systemic symptoms)? @ -Complicated Side effects of treatment? @ -No Exacerbation, Progression, or Severe Exacerbation? @ -No Poses a threat to life or bodily function? How? (Chest pain, [place], [place], pneumonia, PE, COPD, DKA, ARF, appy, cholecystitis, CVA, Diverticulitis, Homicidal, Suicidal, threat to staff... and all critical care pts) @ -Yes Diagnosis/symptom? @ -COVID-19 infection Acute, or Chronic, or Acute on Chronic? @ -Acute Uncomplicated (without systemic symptoms) or Complicated (systemic symptoms)? @ -Complicated Side effects of treatment? @ -none Exacerbation, Progression, or Severe Exacerbation] @ -no Poses a threat to life or bodily function? @ -no - Lab Data Result diagrams: 05/19/23 12:40 05/19/23 13:47 Lab Results 05/19/23 05/19/23 05/19/23 Range/Units 12:40 12:40 12:40 WBC 3.6 L (3.8-10.6) k/uL RBC 4.76 (3.80-5.40) m/uL Hgb 13.2 (11.4-16.0) gm/dL Hct 41.0 (34.0-46.0) % MCV 86.2 (80.0-100.0) fL MCH 27.7 (25.0-35.0) pg MCHC 32.1 (31.0-37.0) g/dL RDW 14.0 (11.5-15.5) % Plt Count 275 (150-450) k/uL MPV 8.1 Neutrophils % 48 % Lymphocytes % 40 % Monocytes % 9 % Eosinophils % 0 % Basophils % 0 % Neutrophils # 1.8 (1.3-7.7) k/uL Lymphocytes # 1.5 (1.0-4.8) k/uL Monocytes # 0.3 (0-1.0) k/uL Eosinophils # 0.0 (0-0.7) k/uL Basophils # 0.0 (0-0.2) k/uL Hypochromasia Slight Sodium (137-145) mmol/L Potassium (3.5-5.1) mmol/L Chloride (98-107) mmol/L Carbon Dioxide (22-30) mmol/L Anion Gap mmol/L BUN (7-17) mg/dL Creatinine (0.52-1.04) mg/dL Est GFR (CKD-EPI)AfAm (>60 ml/min/1.73 sqM) Est GFR (CKD-EPI)NonAf (>60 ml/min/1.73 sqM) Glucose (74-99) mg/dL Calcium (8.4-10.2) mg/dL Total Bilirubin (0.2-1.3) mg/dL AST (14-36) U/L ALT (4-34) U/L Alkaline Phosphatase (38-126) U/L Total Protein (6.3-8.2) g/dL Albumin (3.5-5.0) g/dL Urine Color Light Yellow Urine Appearance Clear (Clear) Urine pH 7.5 (5.0-8.0) Ur Specific [place] 1.005 (1.001-1.035) Urine Protein Negative (Negative) Urine Glucose (UA) 3+ H (Negative) Urine Ketones Negative (Negative) Urine Blood Negative (Negative) Urine Nitrite Negative (Negative) Urine Bilirubin Negative (Negative) Urine Urobilinogen <2.0 (<2.0) mg/dL Ur Leukocyte Esterase Negative (Negative) Urine Opiates Screen (NotDetected) Ur Oxycodone Screen (NotDetected) Urine Methadone Screen (NotDetected) Ur Propoxyphene Screen (NotDetected) Ur Barbiturates Screen (NotDetected) U Tricyclic Antidepress (NotDetected) Ur Phencyclidine Scrn (NotDetected) Ur Amphetamines Screen (NotDetected) U Methamphetamines Scrn (NotDetected) U Benzodiazepines Scrn (NotDetected) Urine Cocaine Screen (NotDetected) U Marijuana (THC) Screen (NotDetected) Serum Alcohol mg/dL Coronavirus (PCR) Detected A (Not Detectd) 05/19/23 05/19/23 Range/Units 12:40 13:47 WBC (3.8-10.6) k/uL RBC (3.80-5.40) m/uL Hgb (11.4-16.0) gm/dL Hct (34.0-46.0) % MCV (80.0-100.0) fL MCH (25.0-35.0) pg MCHC (31.0-37.0) g/dL RDW (11.5-15.5) % Plt Count (150-450) k/uL MPV Neutrophils % % Lymphocytes % % Monocytes % % Eosinophils % % Basophils % % Neutrophils # (1.3-7.7) k/uL Lymphocytes # (1.0-4.8) k/uL Monocytes # (0-1.0) k/uL Eosinophils # (0-0.7) k/uL Basophils # (0-0.2) k/uL Hypochromasia Sodium 139 (137-145) mmol/L Potassium 3.6 (3.5-5.1) mmol/L Chloride 104 (98-107) mmol/L Carbon Dioxide 25 (22-30) mmol/L Anion Gap 10 mmol/L BUN 7 (7-17) mg/dL Creatinine 0.48 L (0.52-1.04) mg/dL Est GFR (CKD-EPI)AfAm >90 (>60 ml/min/1.73 sqM) Est GFR (CKD-EPI)NonAf >90 (>60 ml/min/1.73 sqM) Glucose 212 H (74-99) mg/dL Calcium 8.8 (8.4-10.2) mg/dL Total Bilirubin 0.4 (0.2-1.3) mg/dL AST 21 (14-36) U/L ALT 15 (4-34) U/L Alkaline Phosphatase 127 H (38-126) U/L Total Protein 6.7 (6.3-8.2) g/dL Albumin 3.8 (3.5-5.0) g/dL Urine Color Urine Appearance (Clear) Urine pH (5.0-8.0) Ur Specific [place] (1.001-1.035) Urine Protein (Negative) Urine Glucose (UA) (Negative) Urine Ketones (Negative) Urine Blood (Negative) Urine Nitrite (Negative) Urine Bilirubin (Negative) Urine Urobilinogen (<2.0) mg/dL Ur Leukocyte Esterase (Negative) Urine Opiates Screen Not Detected (NotDetected) Ur Oxycodone Screen Not Detected (NotDetected) Urine Methadone Screen Not Detected (NotDetected) Ur Propoxyphene Screen Not Detected (NotDetected) Ur Barbiturates Screen Not Detected (NotDetected) U Tricyclic Antidepress Not Detected (NotDetected) Ur Phencyclidine Scrn Not Detected (NotDetected) Ur Amphetamines Screen Not Detected (NotDetected) U Methamphetamines Scrn Not Detected (NotDetected) U Benzodiazepines Scrn Not Detected (NotDetected) Urine Cocaine Screen Not Detected (NotDetected) U Marijuana (THC) Screen Detected H (NotDetected) Serum Alcohol <10 mg/dL Coronavirus (PCR) (Not Detectd) - EKG Data -: EKG Interpreted by Me EKG Comments: 12-lead Electrocardiogram Interpretation Note EKG was reviewed and interpreted by myself. 12-lead ECG performed at 1256 is interpreted by me as revealing normal sinus rhythm at a rate of 79 beats per minute. [place] is normal/borderline left axis deviation. [place] interval is 160 ms, QRS duration is 110 ms, QTc is 437 ms. Incomplete right bundle-branch block.. There were no ST or T wave abnormalities to suggest myocardial ischemia or injury. R wave progression across the precordium was satisfactory. By my interpretation this EKG is non-diagnostic for acute ischemia. Disposition Clinical Impression: COVID-19 virus infection, Anxiety, Suicidal ideations, Encounter for psychological evaluation Disposition: HOME SELF-CARE Condition: Good Instructions (If sedation given, give patient instructions): Generalized Anxiety Disorder (ED), COVID-19 (Coronavirus Disease 2019) (ED) Additional Instructions: follow safety plan Prescriptions: LORazepam [Ativan] 0.5 mg PO DAILY PRN 3 Days #3 tab PRN Reason: Anxiety Is patient prescribed a controlled substance at d/c from ED?: Yes When asked, does pt state using other controlled substances?: No If prescribed controlled substance>3 days was MAPS reviewed?: Prescribed <3 Days If opioid is for acute pain is fill amount 7 days or less?: No Referrals: Luis Mcgill DO [Primary Care Provider] - 1-2 days Time of Disposition: 17:15
[2023-05-19 13:04] LABS: Appearance,Urine Clear (Clear); Bilirubin,Urine Negative (Negative); Blood,Urine Negative (Negative); Color,Urine Light Yellow; Glucose,Urine (UA) 3+ (Negative); Ketones,Urine Negative (Negative); Leukocyte Esterase,Urine Negative (Negative); Nitrite,Urine Negative (Negative); PH, Urine 7.5 (5.0-8.0); Protein,Urine Negative (Negative); Specific Gravity,Urine 1.005 (1.001-1.035); Urobilinogen,Urine <2.0 mg/dL (<2.0)
[2023-05-19 13:39] LABS: Amphetamine Screen,Urine Not Detected (NotDetected); Barbiturate Screen,Urine Not Detected (NotDetected); Benzodiazepines Screen,Urine Not Detected (NotDetected); Cocaine Screen,Urine Not Detected (NotDetected); Methadone Screen, Urine Not Detected (NotDetected); Opiate Screen,Urine Not Detected (NotDetected); Oxycodone Screen, Urine Not Detected (NotDetected); Phencyclidine Screen,Urine Not Detected (NotDetected); Tricyclic Antidepressant,Urine Not Detected (NotDetected); Urn Cannabinoid Scrn Detected (NotDetected)
--- NOTE | 2023-05-19 13:46 | XR ---
EXAMINATION TYPE: XR chest 1V portable DATE OF EXAM: 05/19/2023 1:39 PM COMPARISON: Chest radiographs from 03/11/2022 TECHNIQUE: XR chest 1V portable Portable AP radiograph of the chest. CLINICAL INDICATION:Female, 78 years old with history of abdominal pain; FINDINGS: Lungs/Pleura: There is no evidence of pleural effusion, focal consolidation, or pneumothorax. Hyperi nflation. Pulmonary vascularity: Unremarkable. Heart/mediastinum: Cardiomediastinal silhouette is unremarkable. Atherosclerotic calcifications are seen in the aorta. Musculoskeletal: No acute osseous pathology. Redemonstration of previously seen right proximal humeru s fracture. IMPRESSION: 1. No acute cardiopulmonary disease process. 2. COPD changes. 3.Redemonstration of previously seen right proximal humerus fracture.
--- NOTE | 2023-05-19 13:47 | XR ---
EXAMINATION TYPE: XR KUB DATE OF EXAM: 05/19/2023 COMPARISON: NONE HISTORY: Abdominal pain TECHNIQUE: KUB image of the abdomen is obtained 2 radiographs. FINDINGS: Small bowel demonstrates no evidence for dilatation or air fluid levels. Gas and fecal material is seen in non-distended colon. Few pelvic phleboliths. The osseous structures are intact. Multilevel degenerative changes of the lower lumbar spine. IMPRESSION: Overall nonobstructive bowel gas pattern.
[2023-05-19 13:54] LABS: Basophils % (A) 0 %; Eosinophils % (A) 0 %; HGB 13.2 gm/dL (11.4-16.0); Hypochromasia Slight; Lymphocytes # (A) 1.5 k/uL (1.0-4.8); Lymphocytes % (A) 40 %; MCH 27.7 pg (25.0-35.0); MCHC 32.1 g/dL (31.0-37.0); MCV 86.2 fL (80.0-100.0); Mean Platelet Volume 8.1; Monocytes # (A) 0.3 k/uL (0-1.0); Monocytes % (A) 9 %; Neutrophils # (A) 1.8 k/uL (1.3-7.7); Neutrophils % (A) 48 %; Platelet Count 275 k/uL (150-450); RBC 4.76 m/uL (3.80-5.40); WBC 3.6 k/uL (3.8-10.6)
[2023-05-19 14:06] LABS: ALT 15 U/L (4-34); AST 21 U/L (14-36); African American GFR (CKD) >90 (>60 ml/min/1.73 sqM); Albumin 3.8 g/dL (3.5-5.0); Alcohol <10 mg/dL; Alkaline Phosphatase 127 U/L (38-126); Anion Gap 10 mmol/L; Blood Urea Nitrogen 7 mg/dL (7-17); Calcium 8.8 mg/dL (8.4-10.2); Carbon Dioxide 25 mmol/L (22-30); Chloride 104 mmol/L (98-107); Glucose 212 mg/dL (74-99); Non-African American GFR(CKD) >90 (>60 ml/min/1.73 sqM); Potassium 3.6 mmol/L (3.5-5.1); Sodium 139 mmol/L (137-145); Total Bilirubin 0.4 mg/dL (0.2-1.3); Total Protein 6.7 g/dL (6.3-8.2)
== END 2023-05-19 17:34 | disposition home or self-care (01) ==
LOC: EC 12:10
DX: Z00.8 Encounter for other general examination (principal); U07.1 COVID-19; F41.9 Anxiety disorder, unspecified; R45.851 Suicidal ideations; J44.9 Chronic obstructive pulmonary disease, unspecified; E11.9 Type 2 diabetes mellitus without complications; K21.9 Gastro-esophageal reflux disease without esophagitis; Z79.899 Other long term (current) drug therapy; Z88.5 Allergy status to narcotic agent; Z88.6 Allergy status to analgesic agent; Z88.8 Allergy status to other drugs, medicaments and biological substances; Z79.4 Long term (current) use of insulin
CPT/HCPCS: 82075; 36415; 93005; 80053; 85025; 81003; 80306; 87635; 71045; 74018; 99284; 96374; 96375 ×2; 96361; G0480; J2405; J1885; C9113; 80320

== ENCOUNTER 2024-02-21 11:08 | Emergency (ER) | payer MEDICARE ==
[2024-02-21 11:44] LABS: ALT 18 U/L (4-34); AST 22 U/L (14-36); African American GFR (CKD) >90 (>60 ml/min/1.73 sqM); Albumin 4.1 g/dL (3.5-5.0); Alkaline Phosphatase 74 U/L (38-126); Anion Gap 9 mmol/L; Blood Urea Nitrogen 22 mg/dL (7-17); Calcium 9.3 mg/dL (8.4-10.2); Carbon Dioxide 23 mmol/L (22-30); Chloride 103 mmol/L (98-107); Glucose 290 mg/dL (74-99); Non-African American GFR(CKD) 85 (>60 ml/min/1.73 sqM); Potassium 4.5 mmol/L (3.5-5.1); Sodium 135 mmol/L (137-145); Total Bilirubin 0.4 mg/dL (0.2-1.3); Total Protein 6.7 g/dL (6.3-8.2)
[2024-02-21 11:59] VITALS: RESP 18
[2024-02-21 12:01] LABS: Basophils # (A) 0.1 k/uL (0-0.2); Basophils % (A) 2 %; Eosinophils # (A) 0.1 k/uL (0-0.7); Eosinophils % (A) 2 %; HGB 11.2 gm/dL (11.4-16.0); Hypochromasia Slight; Lymphocytes # (A) 1.5 k/uL (1.0-4.8); Lymphocytes % (A) 40 %; MCHC 31.1 g/dL (31.0-37.0); MCV 83.7 fL (80.0-100.0); Mean Platelet Volume 7.7; Monocytes # (A) 0.3 k/uL (0-1.0); Monocytes % (A) 8 %; Neutrophils # (A) 1.7 k/uL (1.3-7.7); Neutrophils % (A) 45 %; Platelet Count 294 k/uL (150-450); RBC 4.31 m/uL (3.80-5.40); RDW 14.3 % (11.5-15.5); WBC 3.8 k/uL (3.8-10.6)
--- NOTE | 2024-02-21 12:12 | ED ---
Weakness HPI - General Source: patient, family, RN notes reviewed Mode of arrival: ambulatory Limitations: no limitations <Janae Cortes - Last Filed: 02/21/24 12:10> - General Source: patient, family, RN notes reviewed Limitations: no limitations <Kelvin Baldwin - Last Filed: 02/21/24 15:14> - General Chief complaint: Weakness Stated complaint: weakness Time Seen by Provider: 02/21/24 11:30 - History of Present Illness Initial comments: Quick Note- This is an 78-year-old female who presents emergency department chief complaint of weakness and fatigue over the last month. She states that she felt shaky and cold over this time. Family is at bedside and denies recent falls with the patient. Denies history of NC, CVA, PE, DVT. (Janae Cortes) Patient is a pleasant 78-year-old female presenting to the emergency department not feeling well for the past few months. Patient is not sleeping well. Patient states that she lays awake most of the night. Patient has been off her anxiety and depression medications for the past 6 or more weeks. Patient states she feels shaky and nauseated still. Patient is able to perform ADLs and did shower today and is able to use the restroom. Patient does live with family. No isolated area of weakness or confusion. Patient adds she has a longstanding history of diabetes with poor control and it is not unusual for her blood sugar to get up to 300. (Kelvin Baldwin) - Related Data Home Medications Medication Instructions Recorded Confirmed Insulin Aspart Prot/Insuln Asp 16 unit SQ AC-SUPPER 03/02/16 03/11/22 [NovoLOG MIX 70-30 Flexpen] Insulin Aspart Prot/Insuln Asp 20 unit SQ AC-BRKFST 03/02/16 03/11/22 [NovoLOG MIX 70-30 Flexpen] Escitalopram [Lexapro] 10 mg PO DAILY 03/11/22 03/11/22 Losartan-Hctz 50-12.5 mg [Hyzaar 1 tab PO DAILY 03/11/22 03/11/22 50-12.5] Nitroglycerin Sl Tabs [Nitrostat] 0.4 mg SUBLINGUAL Q5M PRN 03/11/22 03/11/22 Omeprazole 20 mg PO DAILY 03/11/22 03/11/22 Venlafaxine HCl [Effexor XR] 37.5 mg PO DAILY 03/11/22 03/11/22 Previous Rx's Medication Instructions Recorded Aspirin 81 mg PO DAILY 03/12/22 LORazepam [Ativan] 0.5 mg PO DAILY PRN 3 Days #3 tab 05/19/23 Ondansetron Odt [Zofran Odt] 4 mg PO Q8HR PRN #10 tab 02/21/24 Allergies Allergy/AdvReac Type Severity Reaction Status Date / Time atropine sulfate Allergy Rapid Verified 02/21/24 11:15 [From Lomotil] Heart Rate codeine Allergy Vomiting Verified 02/21/24 11:15 diphenoxylate HCl Allergy Rapid Verified 02/21/24 11:15 [From Lomotil] Heart Rate simvastatin [From Zocor] Allergy Abdominal Verified 02/21/24 11:15 Pain flagyl Allergy Rapid Uncoded 02/21/24 11:15 Heart Rate narcotics Allergy Vomiting Uncoded 02/21/24 11:15 Oatmeal Allergy Rash/Hives Uncoded 02/21/24 11:15 Review of Systems ROS Other: All systems not noted in ROS Statement are negative. <Janae Cortes - Last Filed: 02/21/24 12:10> ROS Other: All systems not noted in ROS Statement are negative. Constitutional: Denies: fever Eyes: Denies: eye pain ENT: Denies: ear pain Respiratory: Denies: cough Cardiovascular: Denies: chest pain Endocrine: Reports: fatigue Gastrointestinal: Reports: nausea Genitourinary: Denies: dysuria Musculoskeletal: Denies: back pain Skin: Denies: lesions Neurological: Reports: as per HPI (Patient feels generally weak). Denies: confusion <Kelvin Baldwin - Last Filed: 02/21/24 15:14> ROS Statement: Those systems with pertinent positive or pertinent negative responses have been documented in the HPI. Past Medical History Past Medical History: Diabetes Mellitus, GERD/Reflux, Hyperlipidemia Additional Past Medical History / Comment(s): varicose vein, diarrhea/constipation, IBS, arthritis, frequent UTI's. recent "NORO virus". History of Any Multi-Drug Resistant Organisms: None Reported Past Surgical History: Hysterectomy, Orthopedic Surgery, Tonsillectomy, Tubal Ligation Additional Past Surgical History / Comment(s): Fx rt elbow surgery, left wrist surgery, right shoulder Past Anesthesia/Blood Transfusion Reactions: Postoperative Nausea & Vomiting (PONV) Additional Past Anesthesia/Blood Transfusion Reaction / Comment(s): severe PONV Past Psychological History: Anxiety Smoking Status: Never smoker Past Alcohol Use History: None Reported Past Drug Use History: None Reported - Past Family History Father Family Medical History: Cancer Mother Family Medical History: Cancer <Maisha Cortesoe - Last Filed: 02/21/24 12:10> General Exam Limitations: no limitations <Maisha Cortesoe - Last Filed: 02/21/24 12:10> Limitations: no limitations General appearance: alert, in no apparent distress Head exam: Present: atraumatic Eye exam: Present: normal appearance, PERRL, EOMI ENT exam: Present: normal oropharynx Neck exam: Present: normal inspection Respiratory exam: Present: normal lung sounds bilaterally Cardiovascular Exam: Present: regular rate, normal rhythm GI/Abdominal exam: Present: soft. Absent: tenderness Extremities exam: Present: normal inspection Neurological exam: Present: alert, CN II-XII intact. Absent: motor sensory deficit Expanded Neurological exam: Present: protecting the airway Speech: Present: fluid speech Cranial nerves: EOM's Intact: Normal Motor strength exam: RUE: 5, LUE: 5, RLE: 5, LLE: 5 Eye Response: (4) open spontaneously Motor Response: (6) obeys commands Verbal Response: (5) oriented Psychiatric exam: Present: normal affect, normal mood Skin exam: Present: normal color <Kelvin Baldwin Last Filed: 02/21/24 15:14> - General Exam Comments Initial Comments: Visual Physical Exam Vital signs reviewed General: Well-appearing, nontoxic, no acute distress. Head: Normocephalic, atraumatic Eyes: PERRLA, EOMI ENT: Airway patent Chest: Nonlabored breathing Skin: No visual rash, normal skin tone Neuro: Alert and oriented 3 Musculoskeletal: No gross abnormalities (StielerJanae) Course Vital Signs 02/21/24 11:09 Temperature 97.6 F Pulse Rate 87 Respiratory 18 Rate Blood Pressure 187/79 O2 Sat by Pulse 99 Oximetry EKG Findings - EKG Results: EKG: interpreted by ERMD (Incomplete right bundle branch block. Septal Q waves.), sinus rhythm, normal axis, normal ST/T <Baldwin,Kelvin - Last Filed: 02/21/24 15:14> Medical Decision Making - Lab Data Result diagrams: 02/21/24 11:17 02/21/24 11:17 <Janae Cortes - Last Filed: 02/21/24 12:10> - Lab Data Result diagrams: 02/21/24 11:17 02/21/24 11:17 <Kelvin Baldwin - Last Filed: 02/21/24 15:14> - Medical Decision Making I completed the quick note portion of this chart signed Janae Cortes PA-C (Janae Cortes) Was pt. sent in by a medical professional or institution ([facility], [employer]PA[employer]ER, urgent care, hospital, or senior living...) When possible be specific @ -No Did you speak to anyone other than the patient for history (EMS, parent, family, police, friend...)? What history was obtained from this source @ -Family is present and helps provide additional history including that they are able to watch over patient and she does not need placement. Did you review nursing and triage notes (agree or disagree)? Why? @ -I reviewed and agree with nursing and triage notes Were old charts reviewed (outside hosp., previous admission, EMS record, old EKG, old radiological studies, urgent care reports/EKG's, senior living records)? Report findings @ -No old charts were reviewed Differential Diagnosis (chest pain, altered mental status, abdominal pain women, abdominal pain men, vaginal bleeding, weakness, fever, dyspnea, syncope, headache, dizziness, GI bleed, back pain, seizure, CVA, palpatations, mental health, musculoskeletal)? @ -Differential Weakness: Hypoglycemia, shock, sepsis, hyponatremia, anemia, infection, NC, ETOH, adverse medicine reaction, overdose, stroke, this is not meant to be an all-inclusive list. EKG interpreted by me (3pts min.). @ -As above X-rays interpreted by me (1pt min.). @ -None done CT interpreted by me (1pt min.). @ -None done U/S interpreted by me (1pt. min.). @ -None done What testing was considered but not performed or refused? (CT, X-rays, U/S, labs)? Why? @ -Considered imaging however patient has no regional areas of weakness, has general nonspecific complaints. What meds were considered but not given or refused? Why? @ -None Did you discuss the management of the patient with other professionals (professionals i.e. , PA, T[employer]ET REPAIRER, lab, RT, psych nurse, oncology social worker, ballistic expert, teacher, president and chief operating officer, medical case manager)? Give summary @ -No Was smoking cessation discussed for >3mins.? @ -No Was critical care preformed (if so, how long)? @ -No Were there social determinants of health that impacted care today? How? (Homelessness, low income, unemployed, alcoholism, drug addiction, transpo rtation, low edu. Level, literacy, decrease access to med. care, detention, rehab)? @ -No Was there de-escalation of care discussed even if they declined (Discuss DNR or withdrawal of care, Hospice)? DNR status @ -No What co-morbidities impacted this encounter? (DM, HTN, Smoking, COPD, CAD, Cancer, CVA, ARF, Chemo, Hep., AIDS, mental health diagnosis, sleep apnea, morbid obesity)? @ -None Was patient admitted / discharged? Hospital course, mention meds given and route, prescriptions, significant lab abnormalities, going to OR and other pertinent info. @ -Patient and family are updated on results. Both are comfortable with discharge home and they do not feel patient needs placement. Patient is happy to receive medications for nausea. Patient is already on PPI. Patient will be discharged with recommendation for follow-up with primary care physician for further evaluation Undiagnosed new problem with uncertain prognosis? @ -No Drug Therapy requiring intensive monitoring for toxicity (Heparin, Nitro, Insulin, Cardizem)? @ -No Were any procedures done? @ -No Diagnosis/symptom? @ -Fatigue, nausea Acute, or Chronic, or Acute on Chronic? @ -Acute, acute Uncomplicated (without systemic symptoms) or Complicated (systemic symptoms)? @ -Complicated with insomnia Side effects of treatment? @ -No Exacerbation, Progression, or Severe Exacerbation? @ -No Poses a threat to life or bodily function? How? (Chest pain, USA, NC, pneumonia, PE, COPD, DKA, ARF, appy, cholecystitis, CVA, Diverticulitis, Homicidal, Suicidal, threat to staff... and all critical care pts) @ -No (Kelvin Baldwin) - Lab Data Lab Results 02/21/24 02/21/24 02/21/24 Range/Units 11:17 11:17 11:17 WBC 3.8 (3.8-10.6) k/uL RBC 4.31 (3.80-5.40) m/uL Hgb 11.2 L (11.4-16.0) gm/dL Hct 36.0 (34.0-46.0) % MCV 83.7 (80.0-100.0) fL MCH 26.0 (25.0-35.0) pg MCHC 31.1 (31.0-37.0) g/dL RDW 14.3 (11.5-15.5) % Plt Count 294 (150-450) k/uL MPV 7.7 Neutrophils % 45 % Lymphocytes % 40 % Monocytes % 8 % Eosinophils % 2 % Basophils % 2 % Neutrophils # 1.7 (1.3-7.7) k/uL Lymphocytes # 1.5 (1.0-4.8) k/uL Monocytes # 0.3 (0-1.0) k/uL Eosinophils # 0.1 (0-0.7) k/uL Basophils # 0.1 (0-0.2) k/uL Hypochromasia Slight Sodium 135 L (137-145) mmol/L Potassium 4.5 (3.5-5.1) mmol/L Chloride 103 (98-107) mmol/L Carbon Dioxide 23 (22-30) mmol/L Anion Gap 9 mmol/L BUN 22 H (7-17) mg/dL Creatinine 0.63 (0.52-1.04) mg/dL Est GFR (CKD-EPI)AfAm >90 (>60 ml/min/1.73 sqM) Est GFR (CKD-EPI)NonAf 85 (>60 ml/min/1.73 sqM) Glucose 290 H (74-99) mg/dL Calcium 9.3 (8.4-10.2) mg/dL Total Bilirubin 0.4 (0.2-1.3) mg/dL AST 22 (14-36) U/L ALT 18 (4-34) U/L Alkaline Phosphatase 74 (38-126) U/L Total Protein 6.7 (6.3-8.2) g/dL Albumin 4.1 (3.5-5.0) g/dL Urine Color Colorless Urine Appearance Clear (Clear) Urine pH 7.0 (5.0-8.0) Ur Specific [place] 1.012 (1.001-1.035) Urine Protein Negative (Negative) Urine Glucose (UA) 3+ H (Negative) Urine Ketones Negative (Negative) Urine Blood Negative (Negative) Urine Nitrite Negative (Negative) Urine Bilirubin Negative (Negative) Urine Urobilinogen <2.0 (<2.0) mg/dL Ur Leukocyte Esterase Negative (Negative) Disposition <Janae Cortes - Last Filed: 02/21/24 12:10> Is patient prescribed a controlled substance at d/c from ED?: No Time of Disposition: 15:13 <Kelvin Baldwin - Last Filed: 02/21/24 15:14> Clinical Impression: Fatigue, Nausea Disposition: HOME SELF-CARE Condition: Stable Instructions (If sedation given, give patient instructions): Abdominal Pain in Children (ED), Fatigue (ED), Weakness (ED) Additional Instructions: Prescription sent to pharmacy. Please do follow-up with your primary care physician in the next 1 or 2 days for recheck. Primary care physician will likely need further testing. Please also discuss with your doctor regarding antidepressant and anxiety lytic medicine. Return for weakness, confusion, u ncontrolled vomiting, worsening or changing symptoms or other concerns. Prescriptions: Ondansetron Odt [Zofran Odt] 4 mg PO Q8HR PRN #10 tab PRN Reason: Nausea Referrals: Luis Mcgill DO [Primary Care Provider] - 1-2 days
[2024-02-21 13:39] LABS: Appearance,Urine Clear (Clear); Bilirubin,Urine Negative (Negative); Blood,Urine Negative (Negative); Color,Urine Colorless; Glucose,Urine (UA) 3+ (Negative); Ketones,Urine Negative (Negative); Leukocyte Esterase,Urine Negative (Negative); Nitrite,Urine Negative (Negative); Protein,Urine Negative (Negative); Specific Gravity,Urine 1.012 (1.001-1.035); Urobilinogen,Urine <2.0 mg/dL (<2.0)
[2024-02-21] MEDS: ONDANSETRON ODT 4 MG TAB PO STA (15:22)
[2024-02-21 15:42] VITALS: BP 170/78; PULSE 72; TEMP 98.1
== END 2024-02-21 15:29 | disposition home or self-care (01) ==
LOC: EC 11:08
DX: R11.0 Nausea (principal); I45.10 Unspecified right bundle-branch block; R53.83 Other fatigue; Z88.5 Allergy status to narcotic agent; Z88.8 Allergy status to other drugs, medicaments and biological substances; Z88.6 Allergy status to analgesic agent
CPT/HCPCS: 36415; 80053; 81003; 85025; 93005; 99284

== ENCOUNTER → 2024-03-30 | Outpatient (CLI) | payer MEDICARE ==
--- NOTE | 2024-03-30 15:09 | CT ---
EXAMINATION TYPE: CT abdomen pelvis wo con CT DLP: 986 mGycm, Automated exposure control for dose reduction was used. DATE OF EXAM: 03/30/2024 1:26 PM COMPARISON: CT abdomen pelvis most recent from CLINICAL INDICATION:Female, 78 years old with history of R10.30 LOWER ABDOMINAL PAIN, UNSPECIFIED; LO WER ABD PAIN/ LEFT FLANK TECHNIQUE: Axial CT abdomen pelvis wo con;Sagittal and coronal reformats were created on a separate workstation. Contrast used: mL of , (none if empty) Oral contrast used: without Oral Contrast (none if empty) FINDINGS: LOWER CHEST: Unremarkable ABDOMEN LIVER: Unremarkable GALLBLADDER AND BILE DUCTS: Unremarkable. PANCREAS: Calcifications of chronic pancreatitis SPLEEN: Old healed granulomatous disease ADRENAL GLANDS: Unremarkable. KIDNEYS AND URETERS: No evidence of hydronephrosis. Bilateral nonobstructing nephroliths. The ureters are unremarkable. PELVIS BLADDER: Unremarkable REPRODUCTIVE: Unremarkable. ABDOMEN & PELVIS STOMACH AND BOWEL: Large hiatal hernia containing substantial portion of stomach. Stomach and duodenu m are otherwise unremarkable. No substantial diverticulosis. No evidence of bowel obstruction. PERITONEUM/RETROPERITONEUM: No evidence of pneumoperitoneum or free fluid. VASCULATURE: No evidence of aortic aneurysm. MUSCULOSKELETAL: No acute osseous abnormalities LYMPH NODES: No gross evidence for lymphadenopathy. SOFT TISSUE/ABDOMINAL WALL: Unremarkable IMPRESSION: 1. Hiatal hernia. 2. Nonobstructive Nephrolithiasis without evidence for acute renal stone.
== END | disposition home or self-care (01) ==
LOC: RADCTMAIN 13:05
PROVIDERS: ATTEND Family Medicine
DX: N20.0 Calculus of kidney (principal); K44.9 Diaphragmatic hernia without obstruction or gangrene
CPT/HCPCS: 74176

== ENCOUNTER → 2024-05-15 | Outpatient (CLI) | payer MEDICARE ==
--- NOTE | 2024-05-15 20:20 | BD ---
EXAMINATION TYPE: Axial Bone Density DATE OF EXAM: 05/15/2024 CLINICAL HISTORY: 79 years old Female. ICD-10 CODE: Z78.0 ASYMPTOMATIC MENOPAUSAL STA Height: 64 Weight: 176.2 FRAX RISK QUESTIONS: Alcohol (3 or more units per day): no Family History (Parent hip fracture): no Glucocorticoids (More than 3mos): no (Ex: prednisone, prednisolone, methylprednisolone, dexamethasone, and hydrocortisone). History of Fracture in Adulthood: wrist, elbow, shoulder Secondary Osteoporosis: 1. Type 1 Diabetes: yes 2. Hyperthyroidism: no 3. Menopause before 45: yes age 39 4. Malnutrition: no 5. Chronic liver disease: no Rheumatoid Arthritis: no Current Tobacco Use: no RISK FACTORS HISTORY OF: Hip Fracture (Right/Left): no Spine Fracture: no History of Wrist Fracture: yes Surgery to Spine/Hip(right/left)/Wrist (right/left): Lt Wrist When: 1993 MEDICATIONS: Thyroid Medications: no Osteoporosis Medications: no EXAM MEASUREMENTS: Bone mineral densitometry was performed using the [employer] System. Bone mineral density as measured about the Lumbar spine is: ----- L1-L4(G/cm2): 1.061 T Score Values are as follows: ----- L1: -0.9 ----- L2: -2.4 ----- L3: -0.5 ----- L4: -0.2 ----- L1-L4: -1.0 Z Score Values are as follows: ----- L1: 0.4 ----- L2: -1.0 ----- L3: 0.8 ----- L4: 1.2 ----- L1-L4: 0.4 Baseline Study Bone mineral density about the R hip (g/cm2): 0.819 Bone mineral density about the L hip (g/cm2)0.788 T Score values are as follows: -----R Neck: -1.8 -----L Neck: -2.7 -----R Total: -1.5 -----L Total: -1.7 Z Score values are as follows: -----R Neck: 0.1 -----L Neck: -0.8 -----R Total: 0.2 -----L Total: 0.0 Baseline Study FRAX%s: The graph provided illustrates a 29.0% chance for a major osteoporotic fx and a 10.2% chance for the hips probability for fx in 10 years time. IMPRESSION: Osteoporosis (T Score less than -2.5). There is increased fracture risk and therapy is usually indicated based on age. Re-Screen 1-2 years. NOTE: T-SCORE=SD OF THE YOUNG ADULT MEAN.
--- NOTE | 2024-05-17 15:20 | MM ---
Reason for Exam: Screening (asymptomatic). Last mammogram was performed 11 year(s) and 0 month(s) ago. Patient History: Menarche at age 10. First Full-Term at age 17. Left ovary removed at age 39. Right ovary removed at age 39. Hysterectomy at age 39. Postmenopausal. Patient has history of breast feeding. Maternal cousin had breast cancer. Risk Values: Wilda 5 year model risk: 1.2%. NCI Lifetime model risk: 1.7%. Prior Study Comparison: 05/13/2013 Bilateral Screening Mammogram, [facility]. Tissue Density: There are scattered areas of fibroglandular density. Findings: Analyzed By CAD. The pattern is symmetrical. Benign vascular calcifications present. No suspicious groups of microcalcifications, spiculated or lobular masses, architectural distortion or other secondary signs of malignancy are mammographically apparent. Overall Assessment: Benign, BI-RAD 2 Management: Screening Mammogram of both breasts in 1 year. A negative mammogram report should not preclude additional follow up of suspicious palpable abnormalities. Patient should continue monthly self breast exam. A clinical breast exam by your physician is recommended on an annual basis and results should be correlated with mammographic findings. Note on Wilda scores and lifetime risk: 1. A Wilda score greater than 3% is considered moderate risk. If this is the case, consider specialist referral to assess eligibility for a risk reducing agent. 2. If overall lifetime risk for the development of breast cancer is 20% or higher, the patient may qualify for future screening with alternating mammogram and breast MRI. Electronically signed and approved by: Grant Martin D.O. Radiologis
== END | disposition home or self-care (01) ==
LOC: RADMAMWWP 13:51
PROVIDERS: ATTEND Family Medicine
DX: Z12.31 Encounter for screening mammogram for malignant neoplasm of breast (principal); M85.89 Other specified disorders of bone density and structure, multiple sites; Z78.0 Asymptomatic menopausal state; Z80.3 Family history of malignant neoplasm of breast
CPT/HCPCS: 77067; 77080

== ENCOUNTER 2024-05-23 22:55 | Emergency (ER) | payer MEDICARE ==
[2024-05-23 23:02] VITALS: RESP 18; TEMP 98
[2024-05-24] MEDS: LIDOCAINE 4% PATCH TOPICAL ONE (00:56)
--- NOTE | 2024-05-24 01:52 | ED ---
Fall HPI - General Chief Complaint: Fall Stated Complaint: Fall- rib pain Time Seen by Provider: 05/24/24 00:21 Source: patient Mode of arrival: wheelchair - History of Present Illness Initial Comments: 79-year-old female presenting with chief complaint of right-sided rib pain. Patient was gardening earlier today when she fell over onto her side. She denies any head injury. No blood thinners or loss of consciousness. She has had soreness over the right ribs. She admits to increased pain with deep breaths. She took Motrin and Tylenol prior to arrival. No dizziness, nausea, vomiting, vision or hearing changes, numbness, tingling, weakness. - Related Data Home Medications Medication Instructions Recorded Confirmed Insulin Aspart Prot/Insuln Asp 20 unit SQ AC-BID 03/02/16 02/21/24 [NovoLOG MIX 70-30 Flexpen] Acetaminophen [Tylenol 8 Hour] 1,300 mg PO HS 02/21/24 02/21/24 Escitalopram [Lexapro] 20 mg PO HS 02/21/24 02/21/24 Melatonin 10 mg PO HS 02/21/24 02/21/24 hydrOXYzine HCL [Atarax] 25 mg PO BID 02/21/24 02/21/24 Previous Rx's Medication Instructions Recorded Ondansetron Odt [Zofran Odt] 4 mg PO Q8HR PRN #10 tab 02/21/24 traMADol HCL 50 mg PO Q6H PRN 3 Days #12 tab 05/24/24 Allergies Allergy/AdvReac Type Severity Reaction Status Date / Time diphenoxylate HCl Allergy Rapid Verified 05/23/24 23:02 [From Lomotil] Heart Rate metronidazole [From Flagyl] Allergy Rash/Hives/Rapid Verified 05/23/24 23:02 Heart Rate simvastatin [From Zocor] Allergy Abdominal Verified 05/23/24 23:02 Pain atropine sulfate AdvReac Rapid Verified 05/23/24 23:02 [From Lomotil] Heart Rate codeine AdvReac Vomiting Verified 05/23/24 23:02 Oatmeal Allergy Rash/Hives Uncoded 05/23/24 23:02 narcotics AdvReac Vomiting Uncoded 05/23/24 23:02 Review of Systems ROS Statement: Those systems with pertinent positive or pertinent negative responses have been documented in the HPI. ROS Other: All systems not noted in ROS Statement are negative. Past Medical History Past Medical History: Diabetes Mellitus, GERD/Reflux, Hyperlipidemia Additional Past Medical History / Comment(s): varicose vein, diarrhea/constipation, IBS, arthritis, frequent UTI's. recent "NORO virus". History of Any Multi-Drug Resistant Organisms: None Reported Past Surgical History: Hysterectomy, Orthopedic Surgery, Tonsillectomy, Tubal Ligation Additional Past Surgical History / Comment(s): Fx rt elbow surgery, left wrist surgery, right shoulder Past Anesthesia/Blood Transfusion Reactions: Postoperative Nausea & Vomiting (PONV) Additional Past Anesthesia/Blood Transfusion Reaction / Comment(s): severe PONV Past Psychological History: Anxiety Smoking Status: Never smoker Past Alcohol Use History: None Reported Past Drug Use History: None Reported - Past Family History Father Family Medical History: Cancer Mother Family Medical History: Cancer General Exam Limitations: no limitations General appearance: alert, in no apparent distress Head exam: Present: atraumatic, normocephalic Eye exam: Present: normal appearance, PERRL, EOMI Neck exam: Present: normal inspection, full ROM. Absent: tenderness Respiratory exam: Present: normal lung sounds bilaterally, chest wall tenderness (Right side). Absent: respiratory distress, wheezes, rales, rhonchi, stridor Cardiovascular Exam: Present: regular rate, normal rhythm, normal heart sounds. Absent: systolic murmur, diastolic murmur, rubs, gallop, clicks Neurological exam: Present: alert, oriented X3 Expanded Patient oriented to: Present: person, place, time Speech: Present: fluid speech Eye Response: (4) open spontaneously Motor Response: (6) obeys commands Verbal Response: (5) oriented [place] Total: 15 Psychiatric exam: Present: normal affect, normal mood Skin exam: Present: warm, dry Course Vital Signs 05/23/24 05/24/24 22:56 02:01 Temperature 98.0 F 98.0 F Pulse Rate 71 61 Respiratory 18 18 Rate Blood Pressure 182/74 174/74 O2 Sat by Pulse 98 99 Oximetry Medical Decision Making - Medical Decision Making Was pt. sent in by a medical professional or institution (, PA, OUTLET MANAGER, urgent care, hospital, or snf...) When possible be specific @ -No Did you speak to anyone other than the patient for history (EMS, parent, family, police, friend...)? What history was obtained from this source @ -Daughters supplement history Did you review nursing and triage notes (agree or disagree)? Why? @ -I reviewed and agree with nursing and triage notes Were old charts reviewed (outside hosp., previous admission, EMS record, old EKG, old radiological studies, urgent care reports/EKG's, snf records)? Report findings @ -No old charts were reviewed Differential Diagnosis (chest pain, altered mental status, abdominal pain women, abdominal pain men, vaginal bleeding, weakness, fever, dyspnea, syncope, headache, dizziness, GI bleed, back pain, seizure, CVA, palpatations, mental health, musculoskeletal)? @ -Differential includes fracture, contusion, pneumothorax, hematoma, this is not an all-inclusive list EKG interpreted by me (3pts min.). @ -As above X-rays interpreted by me (1pt min.). @ -X-ray shows no definite rib fracture. 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 @ -None done U/S interpreted by me (1pt. min.). @ -None done What testing was considered but not performed or refused? (CT, X-rays, U/S, labs)? Why? @ -None What meds were considered but not given or refused? Why? @ -None Did you discuss the management of the patient with other professionals (professionals i.e. , PA, OUTLET MANAGER, lab, RT, psych nurse, social work case manager, auto bumper straightener, teacher, traffic officer, correctional case records supervisor)? Give summary @ -No Was smoking cessation discussed for >3mins.? @ -No Was critical care preformed (if so, how long)? @ -No Were there social determinants of health that impacted care today? How? (Homelessness, low income, unemployed, alcoholism, drug addiction, transportation, low edu. Level, literacy, decrease access to med. care, group home, rehab)? @ -No Was there de-escalation of care discussed even if they declined (Discuss DNR or withdrawal of care, Hospice)? DNR status @ -No What co-morbidities impacted this encounter? (DM, HTN, Smoking, COPD, CAD, Cancer, CVA, ARF, Chemo, Hep., AIDS, mental health diagnosis, sleep apnea, morbid obesity)? @ -None Was patient admitted / discharged? Hospital course, mention meds given and route, prescriptions, significant lab abnormalities, going to OR and other pertinent info. @ -79-year-old female presenting with chief complaint of right rib pain. She had a fall in the garden earlier today. She had no head injury, loss of consciousness, or use of blood thinners. She admits to increased pain with breathing, however she does not feel short of breath. Lung sounds are equal bilaterally. X-ray shows no evidence of definite rib fracture. There is an old fracture of the humeral neck. Patient is given lidocaine patch and pain medication. Provided with incentive spirometer. Discharged home. Follow-up with PCP. Report back to ER with any new or worsening symptoms. Discussed return parameters and answered all questions. Patient conveyed verbal understanding and agreed to the plan. I discussed this case in detail with my attending Dr. Ernandez Undiagnosed new problem with uncertain prognosis? @ -No Drug Therapy requiring intensive monitoring for toxicity (Heparin, Nitro, Insulin, Cardizem)? @ -No Were any procedures done? @ -No Diagnosis/symptom? @ -Rib contusion Acute, or Chronic, or Acute on Chronic? @ -Acute Uncomplicated (without systemic symptoms) or Complicated (systemic symptoms)? @ -Uncomplicated Side effects of treatment? @ -No Exacerbation, Progression, or Severe Exacerbation? @ -No Poses a threat to life or bodily function? How? (Chest pain, [place], [place], pneumonia, PE, COPD, DKA, ARF, appy, cholecystitis, CVA, Diverticulitis, Homicidal, Suicidal, threat to staff... and all critical care pts) @ -Low likelihood Disposition Clinical Impression: Rib contusion Disposition: HOME SELF-CARE Condition: Good Instructions (If sedation given, give patient instructions): Rib Contusion (ED) Additional Instructions: Follow-up with your PCP. Report back to ER with any new or worsening symptoms. Use your incentive spirometer to help prevent pneumonia. Prescriptions: traMADol HCL 50 mg PO Q6H PRN 3 Days #12 tab PRN Reason: Pain Is patient prescribed a controlled substance at d/c from ED?: Yes When asked, does pt state using other controlled substances?: No If prescribed controlled substance>3 days was MAPS reviewed?: Prescribed <3 Days If opioid is for acute pain is fill amount 7 days or less?: Yes Referrals: Rome Ramirez MD [Primary Care Provider] - 1-2 days Time of Disposition: 01:52
[2024-05-24 02:03] VITALS: BP 174/74; PULSE 61
[2024-05-24] MEDS: ONDANSETRON ODT 4 MG TAB PO STA (02:03)
[2024-05-24] MEDS: traMADol 50 MG STARTER PACK 3 TAB BTL PO STA (02:04)
[2024-05-24] MEDS: ONDANSETRON 4 MG ODT STARTER PACK 2 TAB BTL PO STA (02:04)
[2024-05-24] MEDS: HYDROmorphone 0.5 MG/0.5 ML SYRINGE IM STA (02:05)
--- NOTE | 2024-05-24 07:09 | XR ---
Chest and right ribs. HISTORY: Fall and right chest pain. COMPARISON: Chest dated 03/11/2022 and right humerus dated 04/18/2023 TECHNIQUE: 5 views of the chest and right ribs are obtained FINDINGS: There is no evidence of right rib fracture. There is marked deformity of the right humeral head. Findings are consistent with a nonhealed comminu rasheeda fracture of the right humeral head. There is no acute cardiopulmonary disease. IMPRESSION: 1. No definite rib fracture. 2. 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
== END 2024-05-24 02:10 | disposition home or self-care (01) ==
LOC: EC 22:55
DX: S20.211A Contusion of right front wall of thorax, initial encounter (principal); Z88.1 Allergy status to other antibiotic agents; Z88.5 Allergy status to narcotic agent; Z88.8 Allergy status to other drugs, medicaments and biological substances; Z91.018 Allergy to other foods; W19.XXXA Unspecified fall, initial encounter; Y92.096 Garden or yard of other non-institutional residence as the place of occurrence of the external cause
CPT/HCPCS: 71101; 99283; 96372; S0119; J1170

== ENCOUNTER 2025-05-10 09:12 | Emergency (ER) | payer MEDICARE ==
[2025-05-10] MEDS: KETOROLAC 15 MG/ML 1 ML VIAL IM STA (09:44)
--- NOTE | 2025-05-10 10:04 | XR ---
EXAMINATION TYPE: XR knee complete LT DATE OF EXAM: 05/10/2025 9:52 AM COMPARISON: None CLINICAL INDICATION: Female, 80 years old with history of pain; PHH, pain TECHNIQUE: 3 views FINDINGS: Small knee joint effusion. Mild anterior soft tissue swelling. Minimal degenerative spurring medial p atellofemoral compartments. No acute fracture, subluxation, dislocation is seen. IMPRESSION: No acute osseous abnormality seen. However, there is a small knee joint effusion and some anterior so ft tissue swelling. If concern for internal derangement, MRI can be performed. [facility], Workstation: [facility], 05/10/2025 10:01 AM
--- NOTE | 2025-05-10 10:24 | US ---
EXAMINATION TYPE: US venous doppler duplex LE LT DATE OF EXAM: 05/10/2025 9:39 AM COMPARISON: NONE CLINICAL INDICATION: Female, 80 years old with history of pain; Left leg pain TECHNIQUE: The lower extremity deep venous system is examined utilizing real time linear array sonog radha with graded compression, color doppler sonography, and spectral doppler. SIDE PERFORMED: Left FINDINGS: VESSELS IMAGED: Common Femoral Vein Deep Femoral Vein Greater Saphenous Vein * Femoral Vein Popliteal Vein Small Saphenous Vein * Proximal Calf Veins (* superficial vessels) Left Leg: Appears negative for DVT IMPRESSION: No evidence for DVT within the left lower extremity imaged from the groin to the upper calf. [facility], , 05/10/2025 10:22 AM
[2025-05-10 10:50] VITALS: RESP 20
[2025-05-10] MEDS: traMADol 50 MG STARTER PACK 3 TAB BTL PO STA (10:52)
--- NOTE | 2025-05-10 10:55 | ED ---
Lower Extremity Injury HPI - General Chief Complaint: Extremity Injury, Lower Stated Complaint: L leg pain Time Seen by Provider: 05/10/25 09:24 Source: patient, family, RN notes reviewed Mode of arrival: wheelchair Limitations: no limitations - History of Present Illness Initial Comments: 80-year-old female presents emergency department complaint of left knee pain. She states has been increasing last several weeks. Patient states that it is more swollen and painful. Patient takes some Tylenol without any significant relief. No paresthesias she states there is some pain that radiates up her back open denies any back pain denies any bowel, bladder cons retention no trauma no falls. - Related Data Home Medications Medication Instructions Recorded Confirmed Insulin Aspart Prot/Insuln Asp 20 unit SQ AC-BID 03/02/16 02/21/24 [NovoLOG MIX 70-30 Flexpen] Acetaminophen [Tylenol 8 Hour] 1,300 mg PO HS 02/21/24 02/21/24 Escitalopram [Lexapro] 20 mg PO HS 02/21/24 02/21/24 Melatonin 10 mg PO HS 02/21/24 02/21/24 hydrOXYzine HCL [Atarax] 25 mg PO BID 02/21/24 02/21/24 Previous Rx's Medication Instructions Recorded Ondansetron Odt [Zofran Odt] 4 mg PO Q8HR PRN #10 tab 02/21/24 traMADol HCL 50 mg PO Q6H PRN 3 Days #12 tab 05/24/24 traMADol HCl [Ultram] 50 mg PO Q6H PRN #12 tab 05/10/25 Allergies Allergy/AdvReac Type Severity Reaction Status Date / Time diphenoxylate HCl Allergy Rapid Verified 05/10/25 09:23 [From Lomotil] Heart Rate metronidazole [From Flagyl] Allergy Rash/Hives/Rapid Verified 05/10/25 09:23 Heart Rate simvastatin [From Zocor] Allergy Abdominal Verified 05/10/25 09:23 Pain atropine sulfate AdvReac Rapid Verified 05/10/25 09:23 [From Lomotil] Heart Rate codeine AdvReac Vomiting Verified 05/10/25 09:23 Oatmeal Allergy Rash/Hives Uncoded 05/10/25 09:23 narcotics AdvReac Vomiting Uncoded 05/10/25 09:23 Review of Systems ROS Statement: Those systems with pertinent positive or pertinent negative responses have been documented in the HPI. ROS Other: All systems not noted in ROS Statement are negative. Past Medical History Past Medical History: Diabetes Mellitus, GERD/Reflux, Hyperlipidemia Additional Past Medical History / Comment(s): varicose vein, diarrhea/constipation, IBS, arthritis, frequent UTI's. recent "NORO virus". History of Any Multi-Drug Resistant Organisms: None Reported Past Surgical History: Hysterectomy, Orthopedic Surgery, Tonsillectomy, Tubal Ligation Additional Past Surgical History / Comment(s): Fx rt elbow surgery, left wrist surgery, right shoulder Past Anesthesia/Blood Transfusion Reactions: Postoperative Nausea & Vomiting (PONV) Additional Past Anesthesia/Blood Transfusion Reaction / Comment(s): severe PONV Past Psychological History: Anxiety Smoking Status: Never smoker Past Alcohol Use History: None Reported Past Drug Use History: None Reported - Past Family History Father Family Medical History: Cancer Mother Family Medical History: Cancer General Exam Limitations: no limitations General appearance: alert, in no apparent distress Head exam: Present: atraumatic, normocephalic, normal inspection Eye exam: Present: normal appearance, PERRL, EOMI. Absent: scleral icterus, conjunctival injection, periorbital swelling Respiratory exam: Present: normal lung sounds bilaterally. Absent: respiratory distress, wheezes, rales, rhonchi, stridor Cardiovascular Exam: Present: regular rate, normal rhythm, normal heart sounds. Absent: systolic murmur, diastolic murmur, rubs, gallop, clicks Extremities exam: Present: other (Left knee there is mild swelling noted no erythema no neurovascular intact but with mild discomfort with range of motion no calf tenderness) Course Vital Signs 05/10/25 09:21 Temperature 98 F Pulse Rate 76 Respiratory 22 Rate Blood Pressure 161/75 O2 Sat by Pulse 99 Oximetry Medical Decision Making - Medical Decision Making Was pt. sent in by a medical professional or institution (, PA, PUBLIC SPEAKING PROFESSOR, urgent care, hospital, or skilled nursing...) When possible be specific @ -No Did you speak to anyone other than the patient for history (EMS, parent, family, police, friend...)? What history was obtained from this source @ -No Did you review nursing and triage notes (agree or disagree)? Why? @ -I reviewed and agree with nursing and triage notes Were old charts reviewed (outside hosp., previous admission, EMS record, old EKG, old radiological studies, urgent care reports/EKG's, skilled nursing records)? Report findings @ -No old charts were reviewed Differential Diagnosis (chest pain, altered mental status, abdominal pain women, abdominal pain men, vaginal bleeding, weakness, fever, dyspnea, syncope, headache, dizziness, GI bleed, back pain, seizure, CVA, palpatations, mental health, musculoskeletal)? @ -Knee pain DVT knee effusion osteoarthritis, this list is not all inclusive EKG interpreted by me (3pts min.). @ -None X-rays interpreted by me (1pt min.). @ -X-ray left knee showing small effusion, mild osteoarthritis CT interpreted by me (1pt min.). @ -None done U/S interpreted by me (1pt. min.). @ -Ultrasound venous Doppler left leg negative for acute DVT What testing was considered but not performed or refused? (CT, X-rays, U/S, labs)? Why? @ -None What meds were considered but not given or refused? Why? @ -None Did you discuss the management of the patient with other professionals (professionals i.e. , PA, PUBLIC SPEAKING PROFESSOR, lab, RT, psych nurse, drug abuse social worker, supervisor electronics processing, teacher, chief financial officer, family preservation caseworker)? Give summary @ -No Was smoking cessation discussed for >3mins.? @ -No Was critical care preformed (if so, how long)? @ -No Were there social determinants of health that impacted care today? How? (Homele ssness, low income, unemployed, alcoholism, drug addiction, transportation, low edu. Level, literacy, decrease access to med. care, penitentiary, rehab)? @ -No Was there de-escalation of care discussed even if they declined (Discuss DNR or withdrawal of care, Hospice)? DNR status @ -No What co-morbidities impacted this encounter? (DM, HTN, Smoking, COPD, CAD, Cancer, CVA, ARF, Chemo, Hep., AIDS, mental health diagnosis, sleep apnea, morbid obesity)? @ -None Was patient admitted / discharged? Hospital course, mention meds given and route, prescriptions, significant lab abnormalities, going to OR and other pertinent info. @ -Discharge patient presented for left knee pain. Patient may have some sort of ligamentous or meniscus injury as she does have small joint effusion there is no erythema or signs of infection. Vitals are stable negative ultrasound. Patient has an appointment on Saturday with Dr. Cote Undiagnosed new problem with uncertain prognosis? @ -No Drug Therapy requiring intensive monitoring for toxicity (Heparin, Nitro, Insulin, Cardizem)? @ -No Were any procedures done? @ -No Diagnosis/symptom? @ -Left knee pain, joint effusion Acute, or Chronic, or Acute on Chronic? @ -Acute Uncomplicated (without systemic symptoms) or Complicated (systemic symptoms)? @ -Complicated Side effects of treatment? @ -No Exacerbation, Progression, or Severe Exacerbation? @ -No Poses a threat to life or bodily function? How? (Chest pain, [place], [place], pneumonia, PE, COPD, DKA, ARF, appy, cholecystitis, CVA, Diverticulitis, Homicidal, Suicidal, threat to staff... and all critical care pts) @ -No Disposition Clinical Impression: Left knee pain, Joint effusion of knee Disposition: HOME SELF-CARE Condition: Stable Instructions (If sedation given, give patient instructions): Knee Pain (ED) Additional Instructions: Please return to the Emergency Department if symptoms worsen or any other concerns. Prescriptions: traMADol HCl [Ultram] 50 mg PO Q6H PRN #12 tab PRN Reason: Pain Is patient prescribed a controlled substance at d/c from ED?: No Referrals: Rome Ramirez MD [Primary Care Provider] - 1-2 days Homer Cote MD [Medical Doctor] - 05/12/25 10:30 am (Please bring insurance cards and ID to appointment.) Time of Disposition: 10:54
[2025-05-10 11:12] VITALS: BP 168/76; PULSE 68; TEMP 97.9
== END 2025-05-10 11:14 | disposition home or self-care (01) ==
LOC: EC 09:12
DX: M25.562 Pain in left knee (principal); M25.462 Effusion, left knee; Z88.1 Allergy status to other antibiotic agents; Z88.5 Allergy status to narcotic agent; Z88.8 Allergy status to other drugs, medicaments and biological substances
CPT/HCPCS: 73562; 93971; 99284; 96372; J1885